=== PATIENT | female | born 1995 | race African-American/Black ===

== ENCOUNTER 2016-12-28 11:48 | Inpatient (IN) | payer OTHER ==
[~2016-12-28] VITALS: Ht 167.6 cm; Wt 110.7 kg
[~2016-12-28 11:48] MED LIST: HYDR-971 PO; IBUP200T43 PO
[2016-12-28] MEDS ORDERED: IV NORMAL SALINE 1000ML BAG 1,000 ML IV SCH (13:06)
[2016-12-28] MEDS ORDERED: FAMOTIDINE 20 MG/2 ML VIAL IVP ONE (13:15)
[2016-12-28] MEDS ORDERED: ONDANSETRON PF 4 MG/2 ML VIAL. IV ONE (13:15)
[2016-12-28] MEDS: FENTANYL PF 100 MCG/2 ML VIAL. IV PRN ×4 (13:25→20:17)
[2016-12-28 13:26] LABS: BASO % 0 % (0-3); EOS % 0 % (0-3); HEMATOCRIT 38.7 % (36.0-47.0); LYMPH # 1.1 x10^3/uL (1.0-4.8); LYMPH % 21 % (24-48); MEAN CORPUSCULAR HEMOGLOBIN 23 pg (25-35); MEAN CORPUSCULAR HGB CONC 31 g/dL (31-37); MEAN CORPUSCULAR VOLUME 75 fL (79-100); MONO % 7 % (0-9); NEUT % 71 % (31-73); PLATELET COUNT 331 x10^3/uL (140-400); RED BLOOD COUNT 5.17 x10^6/uL (3.50-5.40); RED CELL DISTRIBUTION WIDTH 17.1 % (11.5-14.5); WHITE BLOOD COUNT 4.9 x10^3/uL (4.0-11.0)
[2016-12-28 13:29] LABS: BILIRUBIN,URINE NEGATIVE (NEG); GLUCOSE,URINE NEGATIVE (NEG); NITRITE,URINE NEGATIVE (NEG); PROTEIN,URINE NEGATIVE (NEG-TRACE)
[2016-12-28 13:31] LABS: CALCIUM 9.5 mg/dL (8.5-10.1); CREATININE 0.8 mg/dL (0.6-1.0); GFR 110.7; POTASSIUM 3.8 mmol/L (3.5-5.1)
[2016-12-28 13:37] LABS: ALBUMIN 3.5 g/dL (3.4-5.0); ALBUMIN/GLOBULIN RATIO 0.8 (1.0-1.7); TOTAL BILIRUBIN 1.2 mg/dL (0.2-1.0)
[2016-12-28 13:45] LABS: BACTERIA,URINE FEW /HPF (0-FEW); SQUAMOUS EPITHELIAL CELL,UR FEW /LPF
--- NOTE | 2016-12-28 13:50 | PHYS DOC ---
Past Medical History Past Medical History: No Pertinent History Past Surgical History: No Surgical History Alcohol Use: None Drug Use: None Adult General Chief Complaint Chief Complaint: GI PROBLEM HPI HPI Patient is a 21 year old female who presents with complaint of epigastric and right upper quadrant abdominal pain. Patient states her symptoms started this morning at 0130. Patient states that she awoke from sleep with symptoms. Patient states that off and on for the past 6 months she has been having similar episodes which lasted briefly. Patient states however that her symptoms have been constant which is unusual for her previous episodes. Patient has had associated nausea and vomiting. Patient denies any diarrhea or fever associated with her symptoms. Patient rates her pain currently is 10 out of 10. Patient has not taken any medications to help with symptoms. Patient denies any known exacerbating factors for her symptoms. Review of Systems Review of Systems Constitutional: Denies fever or chills [] Eyes: Denies change in visual acuity, redness, or eye pain [] HENT: Denies nasal congestion or sore throat [] Respiratory: Denies cough or shortness of breath [] Cardiovascular: Denies chest pain or edema [] GI: Abdominal pain, nausea, vomiting, denies bloody stools or diarrhea [] : Denies dysuria or hematuria [] Musculoskeletal: Denies back pain or joint pain [] Integument: Denies rash or skin lesions [] Neurologic: Denies headache, focal weakness or sensory changes [] Current Medications Current Medications Current Medications Medications (Trade) Dose Ordered Sig/Shelly Start Time Stop Time Status Last Admin Dose Admin Famotidine (Pepcid) 20 mg 1X ONCE 12/28/16 13:15 12/28/16 13:16 DC 12/28/16 13:21 20 MG Fentanyl Citrate 50 mcg 50 mcg PRN Q15MIN PRN 12/28/16 13:15 12/29/16 13:14 12/28/16 15:21 50 MCG Ondansetron HCl (Zofran) 4 mg 1X ONCE 12/28/16 13:15 12/28/16 13:16 DC 12/28/16 13:22 4 MG Sodium Chloride (Iv Sodium Chloride 0.9% 1000ml Bag) 1,000 ml @ 1,000 mls/hr Q1H 12/28/16 13:06 12/28/16 14:05 DC 12/28/16 13:18 1,000 MLS/HR Allergies Allergies Allergies Coded Allergies Type Severity Reaction Last Updated Verified No Known Drug Allergies 08/24/15 No Physical Exam Physical Exam Constitutional: Alert, obese, afebrile, appears in moderate discomfort. [] HENT: Normocephalic, atraumatic, bilateral external ears normal, oropharynx moist, no oral exudates, nose normal. [] Eyes: PERRLA, EOMI, conjunctiva normal, no discharge. [] Neck: Normal range of motion, no tenderness, supple, no stridor. [] Cardiovascular:Heart rate regular rhythm, no murmur [] Lungs & Thorax: Bilateral breath sounds clear to auscultation [] Abdomen: Bowel sounds normal, soft, epigastric and right upper quadrant tenderness to palpation with guarding, no rebound tenderness, no masses, no pulsatile masses. [] Skin: Warm, dry, no erythema, no rash. [] Back: No tenderness, no CVA tenderness. [] Extremities: No tenderness, no cyanosis, no clubbing, ROM intact, no edema. [] Neurologic: Alert and oriented X 3, normal motor function, normal sensory function, no focal deficits noted. [] Current Patient Data Vital Signs Vital Signs Date Time Temp Pulse Resp B/P Pulse Ox O2 Delivery O2 Flow Rate FiO2 12/28/16 14:34 54 109/57 99 Room Air 12/28/16 13:25 16 12/28/16 11:55 98.5 98.5 Lab Values Laboratory Tests Test 12/28/16 11:57 12/28/16 12:01 12/28/16 12:05 Urine Collection Type Unknown Urine Color Yellow Urine Clarity Clear Urine pH 8.0 Urine Specific [place] 1.020 Urine Protein Negativemg/dL (NEG-TRACE) Urine Glucose (UA) Negativemg/dL (NEG) Urine Ketones (Stick) Negativemg/dL (NEG) Urine Blood Negative (NEG) Urine Nitrite Negative (NEG) Urine Bilirubin Negative (NEG) Urine Urobilinogen Dipstick 1.0mg/dL (0.2 mg/dL) Urine Leukocyte Esterase Trace (NEG) Urine RBC 1-2/HPF (0-2) Urine WBC 1-4/HPF (0-4) Urine Squamous Epithelial Cells Few/LPF Urine Bacteria Few/HPF (0-FEW) Urine Mucus Slight/LPF POC Urine HCG, Qualitative Hcg negative (Negative) White Blood Count 4.9x10^3/uL (4.0-11.0) Red Blood Count 5.17x10^6/uL (3.50-5.40) Hemoglobin 12.0g/dL (12.0-15.5) Hematocrit 38.7% (36.0-47.0) Mean Corpuscular Volume 75fL (79-100) L Mean Corpuscular Hemoglobin 23pg (25-35) L Mean Corpuscular Hemoglobin Concent 31g/dL (31-37) Red Cell Distribution Width 17.1% (11.5-14.5) H Platelet Count 331x10^3/uL (140-400) Neutrophils (%) (Auto) 71% (31-73) Lymphocytes (%) (Auto) 21% (24-48) L Monocytes (%) (Auto) 7% (0-9) Eosinophils (%) (Auto) 0% (0-3) Basophils (%) (Auto) 0% (0-3) Neutrophils # (Auto) 3.5x10^3uL (1.8-7.7) Lymphocytes # (Auto) 1.1x10^3/uL (1.0-4.8) Monocytes # (Auto) 0.4x10^3/uL (0.0-1.1) Eosinophils # (Auto) 0.0x10^3/uL (0.0-0.7) Basophils # (Auto) 0.0x10^3/uL (0.0-0.2) Sodium Level 141mmol/L (136-145) Potassium Level 3.8mmol/L (3.5-5.1) Chloride Level 104mmol/L (98-107) Carbon Dioxide Level 29mmol/L (21-32) Anion Gap 8 (6-14) Blood Urea Nitrogen 11mg/dL (7-20) Creatinine 0.8mg/dL (0.6-1.0) Estimated GFR (Cockcroft-Gault) 110.7 BUN/Creatinine Ratio 14 (6-20) Glucose Level 102mg/dL (70-99) H Calcium Level 9.5mg/dL (8.5-10.1) Total Bilirubin 1.2mg/dL (0.2-1.0) H Aspartate Amino Transferase (AST) 312U/L (15-37) H Alanine Aminotransferase (ALT) 199U/L (14-59) H Alkaline Phosphatase 145U/L (46-116) H Total Protein 8.0g/dL (6.4-8.2) Albumin 3.5g/dL (3.4-5.0) Albumin/Globulin Ratio 0.8 (1.0-1.7) L Lipase 124U/L (73-393) Laboratory Tests 12/28/16 12:05 Laboratory Tests 12/28/16 12:05 EKG EKG Not performed [] Radiology/Procedures Radiology/Procedures [facility] [address] [place], [place] [id number] IMAGING REPORT Signed PATIENT: HALIE KAUR ACCOUNT: [id number] : 1995 LOCATION: ER AGE: 21 SEX: F EXAM STATUS: REG ER ORD. PHYSICIAN: MESHA MONTANEZ MD REASON: right upper quadrant pain PROCEDURE: ABDOMEN LTD EXAM: Right upper quadrant ultrasound. HISTORY: Right upper quadrant pain. COMPARISON: None. FINDINGS: Sonographic evaluation of the right upper quadrant was performed. The liver appears normal in parenchymal echotexture. There are no focal lesions. There are a few small stones within the gallbladder. There is no pericholecystic fluid or wall thickening. The blood bank specialist notes tenderness over the gallbladder. The common duct measures 10 mm. No choledocholithiasis or distal obstructing lesion is seen. The visualized portions of the head and body of the pancreas reveal no abnormality. The right kidney measures 10.8 cm. Cortical thickness and echogenicity are preserved. There is no hydronephrosis. The visualized portions of the abdominal aorta and inferior vena cava are grossly patent and normal in caliber. IMPRESSION: 1. Cholelithiasis. The blood bank specialist notes tenderness over the gallbladder, but no grayscale evidence of cholecystitis is seen. Correlate with other data. 2. The common duct is mildly dilated at 10 mm. No choledocholithiasis or distal obstructing lesion is seen. Correlate for cholestasis to assess significance. MRCP could further evaluate if there is persistent concern. DICTATED and SIGNED BY: AGUSTÍN PUCKETT MD DATE: 12/28/16 1408 CC: MESHA MONTANEZ MD; AGUSTÍN NICKERSON MD ~ [] Course & Med Decision Making Course & Med Decision Making Pertinent Labs and Imaging studies reviewed. (See chart for details) Patient started on IV fluids, fentanyl, and Zofran. The patient was found to have a dilated common bile duct and the presence of stones in her gallbladder. I have high suspicion that the patient has obstruction of the common bile duct secondary to choledocholithiasis. Patient has elevated LFTs. The patient will need to be admitted to the hospital for continued workup including MRCP and gastroenterology consult. I spoke with Dr. Chua who accepted care patient in hospital. Dragon Disclaimer Dragon Disclaimer This electronic medical record was generated, in whole or in part, using a voice recognition dictation system. Departure Departure Impression: Primary Impression: Choledocholithiasis Additional Impressions: Elevated transaminase level Hyperbilirubinemia Disposition: ADMITTED INPATIENT Admitting Physician: Nenita Chua Condition: STABLE Referrals: AGUSTÍN NICKERSON MD (PCP) Problem Qualifiers MESHA MONTANEZ MD Dec 28, 2016 13:50
--- NOTE | 2016-12-28 14:13 | RAD ---
EXAM: Right upper quadrant ultrasound. HISTORY: Right upper quadrant pain. COMPARISON: None. FINDINGS: Sonographic evaluation of the right upper quadrant was performed. The liver appears normal in parenchymal echotexture. There are no focal lesions. There are a few small stones within the gallbladder. There is no pericholecystic fluid or wall thickening. The agricultural labor camp manager notes tenderness over the gallbladder. The common duct measures 10 mm. No choledocholithiasis or distal obstructing lesion is seen. The visualized portions of the head and body of the pancreas reveal no abnormality. The right kidney measures 10.8 cm. Cortical thickness and echogenicity are preserved. There is no hydronephrosis. The visualized portions of the abdominal aorta and inferior vena cava are grossly patent and normal in caliber. IMPRESSION: 1. Cholelithiasis. The agricultural labor camp manager notes tenderness over the gallbladder, but no grayscale evidence of cholecystitis is seen. Correlate with other data. 2. The common duct is mildly dilated at 10 mm. No choledocholithiasis or distal obstructing lesion is seen. Correlate for cholestasis to assess significance. MRCP could further evaluate if there is persistent concern.
[2016-12-28] MEDS ORDERED: ONDANSETRON PF 4 MG/2 ML VIAL. IV PRN (15:00)
[2016-12-28] MEDS: IV NORMAL SALINE 1000ML BAG 1,000 ML IV SCH (15:24)
--- NOTE | 2016-12-28 15:37 | PDOC2 ---
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 Reports episodes of upper abdominal pain for a few months that awakens her from sleep, occurs at work, or occurs after eating; pain has previously resolved spontaneously. This morning, pain recurred around 1:30 (again while sleeping) and has been persistent and more severe, hence ER eval. Feels better when hunched over. No radiation. Associated w/ nausea and "a lot" (cannot specify) of watery stools. Denies vomiting, hematochezia/melena. No h/o GERD or significant PMH other than vaginal delivery 06/2016. Believes has gained a little weight recently. Significant labs: elevated bili 1.2, AST 312, ALT 199, Alk Phos 145, normal lipase 124. RUQ US w/ cholelithiasis and mildly dilated CBD 10mm; normal liver , no choledocholithiasis seen. Surgery consulted, to be admitted to regular floor. PMH: PMH: denies other than HPI FH: Family History: Other ("a few people" had gallbladder disease, denies GI cancers) Social History: Smoke: No ALCOHOL: none Drugs: None (+marijuana 07/2016) ROS: GEN: Denies fevers, chills, sweats HEENT: Denies blurred vision, sore throat CV: Denies chest pain RESP: Denies shortness of air, cough GI: Per HPI : Denies hematuria, dysuria ENDO: +possible weight gain NEURO: Denies confusion, dizziness MSK: Denies weakness, joint pain/swelling SKIN: Denies jaundice, pruritus VItals: Vitals: Vital Signs Date Time Temp Pulse Resp B/P Pulse Ox O2 Delivery O2 Flow Rate FiO2 12/28/16 13:25 16 98 Room Air 12/28/16 11:55 98.5 81 139/69 98.5 Labs: Labs: Laboratory Tests Test 12/28/16 11:57 12/28/16 12:01 12/28/16 12:05 Urine Collection Type Unknown Urine Color Yellow Urine Clarity Clear Urine pH 8.0 Urine Specific [place] 1.020 Urine Protein Negativemg/dL (NEG-TRACE) Urine Glucose (UA) Negativemg/dL (NEG) Urine Ketones (Stick) Negativemg/dL (NEG) Urine Blood Negative (NEG) Urine Nitrite Negative (NEG) Urine Bilirubin Negative (NEG) Urine Urobilinogen Dipstick 1.0mg/dL (0.2 mg/dL) Urine Leukocyte Esterase Trace (NEG) Urine RBC 1-2/HPF (0-2) Urine WBC 1-4/HPF (0-4) Urine Squamous Epithelial Cells Few/LPF Urine Bacteria Few/HPF (0-FEW) Urine Mucus Slight/LPF Bedside Urine HCG, Qualitative Hcg negative (Negative) White Blood Count 4.9x10^3/uL (4.0-11.0) Red Blood Count 5.17x10^6/uL (3.50-5.40) Hemoglobin 12.0g/dL (12.0-15.5) Hematocrit 38.7% (36.0-47.0) Mean Corpuscular Volume 75fL (79-100) Mean Corpuscular Hemoglobin 23pg (25-35) Mean Corpuscular Hemoglobin Concent 31g/dL (31-37) Red Cell Distribution Width 17.1% (11.5-14.5) Platelet Count 331x10^3/uL (140-400) Neutrophils (%) (Auto) 71% (31-73) Lymphocytes (%) (Auto) 21% (24-48) Monocytes (%) (Auto) 7% (0-9) Eosinophils (%) (Auto) 0% (0-3) Basophils (%) (Auto) 0% (0-3) Neutrophils # (Auto) 3.5x10^3uL (1.8-7.7) Lymphocytes # (Auto) 1.1x10^3/uL (1.0-4.8) Monocytes # (Auto) 0.4x10^3/uL (0.0-1.1) Eosinophils # (Auto) 0.0x10^3/uL (0.0-0.7) Basophils # (Auto) 0.0x10^3/uL (0.0-0.2) Sodium Level 141mmol/L (136-145) Potassium Level 3.8mmol/L (3.5-5.1) Chloride Level 104mmol/L (98-107) Carbon Dioxide Level 29mmol/L (21-32) Anion Gap 8 (6-14) Blood Urea Nitrogen 11mg/dL (7-20) Creatinine 0.8mg/dL (0.6-1.0) Estimated GFR (Cockcroft-Gault) 110.7 BUN/Creatinine Ratio 14 (6-20) Glucose Level 102mg/dL (70-99) Calcium Level 9.5mg/dL (8.5-10.1) Total Bilirubin 1.2mg/dL (0.2-1.0) Aspartate Amino Transf (AST/SGOT) 312U/L (15-37) Alanine Aminotransferase (ALT/SGPT) 199U/L (14-59) Alkaline Phosphatase 145U/L (46-116) Total Protein 8.0g/dL (6.4-8.2) Albumin 3.5g/dL (3.4-5.0) Albumin/Globulin Ratio 0.8 (1.0-1.7) Lipase 124U/L (73-393) Allergies: Coded Allergies: No Known Drug Allergies (Unverified , 08/24/15) Medications: Current Medications Medications (Trade) Dose Ordered Sig/Shelly Route PRN Reason Start Time Stop Time Status Last Admin Dose Admin Fentanyl Citrate 50 mcg 50 mcg PRN Q15MIN PRN IV PAIN GREATER THAN 12/3012/28/16 13:15 12/29/16 13:14 12/28/16 13:25 Sodium Chloride (Iv Sodium Chloride 0.9% 1000ml Bag) 1,000 ml @ 1,000 mls/hr Q1H IV 12/28/16 13:06 12/28/16 14:05 DC 12/28/16 13:18 Ondansetron HCl (Zofran) 4 mg 1X ONCE IV 12/28/16 13:15 12/28/16 13:16 DC 12/28/16 13:22 Famotidine (Pepcid) 20 mg 1X ONCE IVP 12/28/16 13:15 12/28/16 13:16 DC 12/28/16 13:21 Imaging: Imaging: [facility] US 12/28/16 FINDINGS: The liver appears normal in parenchymal echotexture. There are no focal lesions. There are a few small stones within the gallbladder. There is no pericholecystic fluid or wall thickening. The scenic designer notes tenderness over the gallbladder. The common duct measures 10 mm. No choledocholithiasis or distal obstructing lesion is seen. The visualized portions of the head and body of the pancreas reveal no abnormality. The right kidney measures 10.8 cm. Cortical thickness and echogenicity are preserved. There is no hydronephrosis. The visualized portions of the abdominal aorta and inferior vena cava are grossly patent and normal in caliber. IMPRESSION: 1. Cholelithiasis. The scenic designer notes tenderness over the gallbladder, but no grayscale evidence of cholecystitis is seen. Correlate with other data. 2. The common duct is mildly dilated at 10 mm. No choledocholithiasis or distal obstructing lesion is seen. Correlate for cholestasis to assess significance. MRCP could further evaluate if there is persistent concern. PE: GEN: NAD, sitting up in bed in ER, on phone HEENT: atraumatic, PERRL LUNGS: CTAB HEART: RRR ABD: obese, NABS, soft, non-distended, epigastric < RUQ tenderness EXTREMITY: no edema SKIN: no rashes, no jaundice NEURO/PSYCH: A & O 3 A/P: A/P: RUQ/epigastric pain, nausea, diarrhea -pain on and off for a few months, this morning worse/persistent -nausea w/o vomiting, new onset watery stools Elevated LFTs -bili 1.2 Cholelithiasis, mildly dilated CBD Microcytosis Elevated BMI 37.9 -- D/w Dr. Soto - surg to see re: cathi w/ IOC. ERCP to follow if abnormal. Okay to wait on MRCP for now. DOUG EAGLE Dec 28, 2016 15:37
--- NOTE | 2016-12-28 15:39 | PDOC1 ---
History and Physical Date of Admission Date of Admission DATE: 12/28/16 TIME: 15:34 Identification/Chief Complaint Chief Complaint abd pain Source Source: Chart review, Patient History of Present Illness History of Present Illness Ms. Best, is a 21 year old female admit from ER with acute epigastric and RUQ abdominal pain. 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 10/10 pain today no nausea or vomiting or diarrhea Past Medical History Cardiovascular: No pertinent hx Pulmonary: No pertinent hx Heme/Onc: No pertinent hx Hepatobiliary: No pertinent hx Psych: No pertinent hx Musculoskeletal: low back pain, Other (feet pain) Rheumatologic: No pertinent hx Endocrine: No pertinent hx Family History Family History: No Significant Social History Smoke: No ALCOHOL: none Drugs: None Current Medications Current Medications Current Medications Fentanyl Citrate 50 mcg 50 mcg PRN Q15MIN PRN IV PAIN GREATER THAN 3/10 Last administered on 12/28/16 15:21; Start 12/28/16 at 13:15; Stop 12/29/16 at 13:14 Sodium Chloride (Iv Sodium Chloride 0.9% 1000ml Bag) 1,000 ml @ 1,000 mls/hr Q1H IV Last administered on 12/28/16 13:18; Start 12/28/16 at 13:06; Stop at 14:05; Status DC Ondansetron HCl (Zofran) 4 mg 1X ONCE IV Last administered on 12/28/16 13:22; Start 12/28/16 at 13:15; Stop 12/28/16 at 13:16; Status DC Famotidine (Pepcid) 20 mg 1X ONCE IVP Last administered on 12/28/16 13:21; Start 12/28/16 at 13:15; Stop 12/28/16 at 13:16; Status DC Ondansetron HCl (Zofran) 4 mg PRN Q8HRS PRN IV NAUSEA/VOMITING; Start 12/28/16 at 15:00; Stop 12/29/16 at 14:59 Fentanyl Citrate 50 mcg 50 mcg PRN Q2HR PRN IV PAIN; Start 12/28/16 at 15:00; Stop 12/29/16 at 14:59 Sodium Chloride (Iv Sodium Chloride 0.9% 1000ml Bag) 1,000 ml @ 125 mls/hr Q8H IV Last administered on 12/28/16t 15:24; Start 12/28/16 at 15:00; Stop 12/29/16 at 14:59 Active Scripts Active Motrin Ib (Ibuprofen) 200 Mg Tablet 800 Mg PO TID PRN [place] 5-325 Tablet (Acetaminophen/Hydrocodone Bitart) 1 Each Tablet 1 Tab PO PRN Q6HRS PRN Allergies Allergies: Coded Allergies: No Known Drug Allergies (Unverified , 08/24/15) ROS General: No: Appetite, Chills, Fatigue, Malaise, Night Sweats, Other PSYCHOLOGICAL ROS: No: Anxiety, Behavioral Disorder, Concentration difficultie , Decreased libido, Depression, Disorientation, Hallucinations, Hostility, Irritablity, Memory difficulties, Mood Swings, Obsessive thoughts, Other, Physical abuse, Sexual abuse, Sleep disturbances, Suicidal ideation Eyes: No Blurry vision, No Decreased vision, No Double vision, No Dry eyes, No Excessive tearing, No Eye Pain, No Itchy Eyes, No Loss of vision, No Other, No Photophobia, No Scotomata, No Uses contacts, No Uses glasses HEENT: YES: Heacaches, No: Epistaxis, Hearing change, Nasal congestion, Nasal discharge, Oral lesions, Other, Sinus pain, Sneezing, Snoring, Sore Throat, Tinnitus, Vertigo, Visual Changes, Vocal changes ENDOCRINE: No: Breast Changes, Galactorrhea, Hair Pattern Changes, Hot Flashes , Malaise/lethargy, Mood Swings, Other, Palpitations, Polydipsia/polyuria, Skin Changes, Temperature Intolerance, Unexpected Weight Changes Breast: No New/Changing Breast Lumps, No Nipple changes, No Nipple discharge, No Other Respiratory: No: Cough, Hemoptysis, Orthopnea, Other, Pleuritic Pain, SOB with excertion, Shortness of breath, Sputum Changes, Stridor, Tachypnea, Wheezing Cardiovascular: No Chest Pain, No Edema, No Lt Headedness, No Orthopnea, No Other, No Palpitations, No Paroxysmal Noc. Dyspnea Gastrointestinal: Yes Abdominal Pain, Yes Nausea, No Constipation, No Diarrhea, No Hematochezia, No Melena, No Other, No Vomiting Musculoskeletal: Yes Joint Pain, Yes Joint Stiffness, No Gait Disturbance, No Joint Swelling, No Muscle Pain, No Muscular Weakness , No Other, No Pain In:, No Swelling In: Neurological: No Behavorial Changes, No Bowel/Bladder ControlChng, No Confusion , No Dizziness, No Gait Disturbance, No Headaches, No Impaired Coord/balance, No Memory Loss, No Numbness/Tingling, No Other, No Seizures, No Speech Problems , No Tremors, No Visual Changes, No Weakness Skin: No Acne, No Dry Skin, No Eczema, No Hair Changes, No Lumps, No Mole Changes, No Mottling, No Nail Changes, No Other, No Pruritus, No Rash, No Skin Lesion Changes Physical Exam General: Alert, Oriented X3, Cooperative, mild distress HEENT: EOMI, Mucous membr. moist/pink Lungs: Normal air movement Heart: no murmurs Abdomen: Normal bowel sounds, Other (tender ROQ, no peritoneal sign) Rectal Exam: not examined PELVIC: Nml ext uterus Extremities: No cyanosis, No edema Neuro: Normal speech, Sensation intact Psych/Mental Status: Mental status NL, Mood NL Vitals Vitals Vital Signs Date Time Temp Pulse Resp B/P Pulse Ox O2 Delivery O2 Flow Rate FiO2 12/28/16 15:21 16 100 Room Air 12/28/16 11:55 98.5 81 139/69 98.5 Labs Labs Laboratory Tests Test 12/28/16 11:57 12/28/16 12:01 12/28/16 12:05 Urine Collection Type Unknown Urine Color Yellow Urine Clarity Clear Urine pH 8.0 Urine Specific [place] 1.020 Urine Protein Negativemg/dL (NEG-TRACE) Urine Glucose (UA) Negativemg/dL (NEG) Urine Ketones (Stick) Negativemg/dL (NEG) Urine Blood Negative (NEG) Urine Nitrite Negative (NEG) Urine Bilirubin Negative (NEG) Urine Urobilinogen Dipstick 1.0mg/dL (0.2 mg/dL) Urine Leukocyte Esterase Trace (NEG) Urine RBC 1-2/HPF (0-2) Urine WBC 1-4/HPF (0-4) Urine Squamous Epithelial Cells Few/LPF Urine Bacteria Few/HPF (0-FEW) Urine Mucus Slight/LPF Bedside Urine HCG, Qualitative Hcg negative (Negative) White Blood Count 4.9x10^3/uL (4.0-11.0) Red Blood Count 5.17x10^6/uL (3.50-5.40) Hemoglobin 12.0g/dL (12.0-15.5) Hematocrit 38.7% (36.0-47.0) Mean Corpuscular Volume 75fL (79-100) Mean Corpuscular Hemoglobin 23pg (25-35) Mean Corpuscular Hemoglobin Concent 31g/dL (31-37) Red Cell Distribution Width 17.1% (11.5-14.5) Platelet Count 331x10^3/uL (140-400) Neutrophils (%) (Auto) 71% (31-73) Lymphocytes (%) (Auto) 21% (24-48) Monocytes (%) (Auto) 7% (0-9) Eosinophils (%) (Auto) 0% (0-3) Basophils (%) (Auto) 0% (0-3) Neutrophils # (Auto) 3.5x10^3uL (1.8-7.7) Lymphocytes # (Auto) 1.1x10^3/uL (1.0-4.8) Monocytes # (Auto) 0.4x10^3/uL (0.0-1.1) Eosinophils # (Auto) 0.0x10^3/uL (0.0-0.7) Basophils # (Auto) 0.0x10^3/uL (0.0-0.2) Sodium Level 141mmol/L (136-145) Potassium Level 3.8mmol/L (3.5-5.1) Chloride Level 104mmol/L (98-107) Carbon Dioxide Level 29mmol/L (21-32) Anion Gap 8 (6-14) Blood Urea Nitrogen 11mg/dL (7-20) Creatinine 0.8mg/dL (0.6-1.0) Estimated GFR (Cockcroft-Gault) 110.7 BUN/Creatinine Ratio 14 (6-20) Glucose Level 102mg/dL (70-99) Calcium Level 9.5mg/dL (8.5-10.1) Total Bilirubin 1.2mg/dL (0.2-1.0) Aspartate Amino Transf (AST/SGOT) 312U/L (15-37) Alanine Aminotransferase (ALT/SGPT) 199U/L (14-59) Alkaline Phosphatase 145U/L (46-116) Total Protein 8.0g/dL (6.4-8.2) Albumin 3.5g/dL (3.4-5.0) Albumin/Globulin Ratio 0.8 (1.0-1.7) Lipase 124U/L (73-393) Laboratory Tests Test 12/28/16 11:57 12/28/16 12:01 12/28/16 12:05 Urine Collection Type Unknown Urine Color Yellow Urine Clarity Clear Urine pH 8.0 Urine Specific [place] 1.020 Urine Protein Negativemg/dL (NEG-TRACE) Urine Glucose (UA) Negativemg/dL (NEG) Urine Ketones (Stick) Negativemg/dL (NEG) Urine Blood Negative (NEG) Urine Nitrite Negative (NEG) Urine Bilirubin Negative (NEG) Urine Urobilinogen Dipstick 1.0mg/dL (0.2 mg/dL) Urine Leukocyte Esterase Trace (NEG) Urine RBC 1-2/HPF (0-2) Urine WBC 1-4/HPF (0-4) Urine Squamous Epithelial Cells Few/LPF Urine Bacteria Few/HPF (0-FEW) Urine Mucus Slight/LPF Bedside Urine HCG, Qualitative Hcg negative (Negative) White Blood Count 4.9x10^3/uL (4.0-11.0) Red Blood Count 5.17x10^6/uL (3.50-5.40) Hemoglobin 12.0g/dL (12.0-15.5) Hematocrit 38.7% (36.0-47.0) Mean Corpuscular Volume 75fL (79-100) Mean Corpuscular Hemoglobin 23pg (25-35) Mean Corpuscular Hemoglobin Concent 31g/dL (31-37) Red Cell Distribution Width 17.1% (11.5-14.5) Platelet Count 331x10^3/uL (140-400) Neutrophils (%) (Auto) 71% (31-73) Lymphocytes (%) (Auto) 21% (24-48) Monocytes (%) (Auto) 7% (0-9) Eosinophils (%) (Auto) 0% (0-3) Basophils (%) (Auto) 0% (0-3) Neutrophils # (Auto) 3.5x10^3uL (1.8-7.7) Lymphocytes # (Auto) 1.1x10^3/uL (1.0-4.8) Monocytes # (Auto) 0.4x10^3/uL (0.0-1.1) Eosinophils # (Auto) 0.0x10^3/uL (0.0-0.7) Basophils # (Auto) 0.0x10^3/uL (0.0-0.2) Sodium Level 141mmol/L (136-145) Potassium Level 3.8mmol/L (3.5-5.1) Chloride Level 104mmol/L (98-107) Carbon Dioxide Level 29mmol/L (21-32) Anion Gap 8 (6-14) Blood Urea Nitrogen 11mg/dL (7-20) Creatinine 0.8mg/dL (0.6-1.0) Estimated GFR (Cockcroft-Gault) 110.7 BUN/Creatinine Ratio 14 (6-20) Glucose Level 102mg/dL (70-99) Calcium Level 9.5mg/dL (8.5-10.1) Total Bilirubin 1.2mg/dL (0.2-1.0) Aspartate Amino Transf (AST/SGOT) 312U/L (15-37) Alanine Aminotransferase (ALT/SGPT) 199U/L (14-59) Alkaline Phosphatase 145U/L (46-116) Total Protein 8.0g/dL (6.4-8.2) Albumin 3.5g/dL (3.4-5.0) Albumin/Globulin Ratio 0.8 (1.0-1.7) Lipase 124U/L (73-393) VTE Prophylaxis Ordered VTE Prophylaxis Devices: Yes VTE Pharmacological Prophylaxi: Contraindicated Assessment/Plan Assessment/Plan Acute RUQ pain choledocholithiasis consult GI and Gen surg transaminitis, hyperbili microcytosis without anemia, poss thalassemia check iron level admit DIONICIO VELÁSQUEZ MD Dec 28, 2016 15:39
[2016-12-28 15:55] VITALS: BP 115/70
--- NOTE | 2016-12-28 16:22 | ACF ---
Admission Forms Criteria ABDOMINAL PAIN Clinical Indications for Admission to Inpatient Care (Place 'X' for any and all applicable criteria): Admission is indicated for ANY ONE of the following(1)(2)(3)(4)(5): [X]I. Inpatient admission required rather than observation care (Also use Abdominal Pain: Observation Care, as appropriate) because of ANY ONE of the following: [X]a) Severe pain requiring acute inpatient management [X]b) Identification of etiology/finding that requires inpatient care (eg, aortic dissection, free air) [ ]c) Absent bowel sounds with complete ileus(6) [ ]d) Suspected toxic megacolon [ ]e) Severe electrolyte abnormalities requiring inpatient care [ ]f) High fever or infection requiring inpatient admission as indicated by ANY ONE of following(7)(8): [ ] i) Appropriate outpatient or observational care antimicrobial treatment unavailable, not effective, or not feasible [ ] ii) Documented bacteremia [ ] iii) Temperature > 104.9 degrees F (oral) [ ] iv) T >103.1 F (oral) or < 96.8 F(rectal) that does not respond to all emergency treatment measures [ ]g) Signs of intestinal obstruction [B] [ ]h) Hemodynamic instability [ ]i) IV fluid to replace significant ongoing losses (greater than 3 L/m2 per day) (12)(13) [ ]j) Percutaneous or open drainage (eg, abscess, biliary tract ) procedures [ ]k) Parenteral nutrition regimen that must be implemented on inpatient basis [ ]l) Other condition,treatment or monitoring requiring inpatient admission. [ ]II. Peritoneal signs present [ ]III. Surgery needed that cannot be performed on an ambulatory basis. [ ]IV. Evaluation requires patient to not eat or drink for extended period ( eg, more than 24 hours). [ ]V. Contraindications and/or Inappropriate clinical situations for Observational Care in patients with abdominal pain, when ANY ONE of the following is required: [ ]a) Thorough evaluation is required to prevent catastrophic events due to delays in diagnosing (e.g.Mesenteric ischemia) 1,3 [ ]b) Patient with severe pathology or with chronic symptoms unlikely to improve in the ED stay (3) [ ]. General contraindications and/or Inappropriate clinical situations for Observational Care in patients with abdominal pain, when ANY ONE of the following is required: [ ]a) Prediction of prolongation of LOS based on ANY ONE of the following may be considered as a contraindication for observational care 2, 3, 4, 5, 6, 7, 8, 9, 10, 11 [ ]i) Age > 65 yrs. [ ]ii) Patient arriving by ambulance [ ]iii) Patient with high acuity [ ]iv) Patient requiring vital sign monitoring [ ]v) Patient on IV medication [ ]b) Systolic blood pressures 180mmHg 3,12 [ ]c) Patient with altered mental status including delirium and other alteration of consciousness, (3) [ ]d) Patient whose discharge disposition will be to a fdc home or rehabilitation home should not be managed in Emergency Department Observation Unit. CMS rule requires 3 days hospital stay before such placement.3,13 [ ]e) Patient with failure to thrive due to broad array of etiologies 3,16,17 [ ]f) Inability to ambulate 3,14 Extended stay beyond goal length of stay may be needed for(2)(3): [ ]a) Persistent abdominal pain with suspected intra-abdominal process [ ]b) Diagnosed condition requiring continued stay (e.g., pancreatitis, complicated diverticulitis) [ ]c) Surgery (e.g., colectomy) The original [email or web address] content created by [employer] has been revised. The portions of the content which have been revised are identified through the use of italic text or in bold, and [facility] [employer] has neither reviewed nor approved the modified material.All other unmodified content is copyright [employer]. Please see references footnoted in the original [email or web address] edition 2016 Admission Criteria Met?: Yes CARRIE العلي Dec 28, 2016 16:22
[2016-12-28 19:15] VITALS: BP 115/67
[2016-12-28 22:59] VITALS: BP 117/54
[2016-12-29] VITALS (10 sets, daily range): BP systolic 98–149; BP diastolic 63–95
[2016-12-29] MEDS: IV NORMAL SALINE 1000ML BAG 1,000 ML IV SCH ×3 (01:06→09:19)
[2016-12-29 04:29] LABS: BASO % 0 % (0-3); EOS % 2 % (0-3); HEMATOCRIT 34.3 % (36.0-47.0); HEMOGLOBIN 10.8 g/dL (12.0-15.5); LYMPH % 36 % (24-48); MEAN CORPUSCULAR HEMOGLOBIN 24 pg (25-35); MEAN CORPUSCULAR HGB CONC 32 g/dL (31-37); MEAN CORPUSCULAR VOLUME 74 fL (79-100); MONO % 7 % (0-9); NEUT % 56 % (31-73); PLATELET COUNT 285 x10^3/uL (140-400); RED BLOOD COUNT 4.61 x10^6/uL (3.50-5.40); WHITE BLOOD COUNT 5.7 x10^3/uL (4.0-11.0)
[2016-12-29 04:40] LABS: CALCIUM 8.5 mg/dL (8.5-10.1); CREATININE 0.7 mg/dL (0.6-1.0); GFR 129.1; POTASSIUM 3.7 mmol/L (3.5-5.1)
[2016-12-29 05:51] LABS: % SAT IRON 17 % (15-34); IRON,SERUM 49 ug/dL (50-170)
[2016-12-29] MEDS: FENTANYL PF 100 MCG/2 ML VIAL. IV PRN ×7 (09:15→23:07)
[2016-12-29] MEDS ORDERED: CEFAZOLIN 2GM PREMIX 50 ML IV SCH (10:45)
[2016-12-29] MEDS ORDERED: HEPARIN 1,000 UNIT in IV NORMAL SALINE 1,000 ML for SURG PERIOP IRR ONE (11:00)
[2016-12-29] MEDS ORDERED: IOHEXOL 300 MG/ML 50 ML VIAL. ONE (11:14)
[2016-12-29] MEDS ORDERED: BUPIVAC MPF-EPI 0.5%-1:200000 30 ML VIAL. ONE (11:14)
[2016-12-29] MEDS ORDERED: BISACODYL 10 MG SUPP.RECT ONE (11:15)
[2016-12-29] MEDS ORDERED: SURGICEL HEMOSTAT 2X3 EACH. ONE (11:15)
[2016-12-29] MEDS ORDERED: IV RINGERS,LACTATED 1000ML 1,000 ML IV SCH (11:18)
[2016-12-29] MEDS ORDERED: ROCURONIUM 50 MG/5 ML VIAL. ONE ×2 (11:23)
--- NOTE | 2016-12-29 11:23 | PDOC ---
SURGICAL PROGRESS NOTE Subjective 21 yo F with calculous cholecystitis TO OR for lap cathi with grams R/B/A d/w pt and pt's aunt on phone Thanks for consult! [id number] Vital Signs Vital Signs Date Time Temp Pulse Resp B/P Pulse Ox O2 Delivery O2 Flow Rate FiO2 12/29/16 09:45 16 Room Air 12/29/16 07:00 98.3 67 98/63 96 98.3 I&O Intake and Output 12/29/16 07:00 Intake Total 1000 ml Output Total 0 ml Balance 1000 ml Intake IV Total 1000 ml Output Urine Total 0 ml # Voids 3 Labs Laboratory Tests Test 12/28/16 11:57 12/28/16 12:01 12/28/16 12:05 12/29/16 04:15 Urine Collection Type Unknown Urine Color Yellow Urine Clarity Clear Urine pH 8.0 Urine Specific [place] 1.020 Urine Protein Negativemg/dL (NEG-TRACE) Urine Glucose (UA) Negativemg/dL (NEG) Urine Ketones (Stick) Negativemg/dL (NEG) Urine Blood Negative (NEG) Urine Nitrite Negative (NEG) Urine Bilirubin Negative (NEG) Urine Urobilinogen Dipstick 1.0mg/dL (0.2 mg/dL) Urine Leukocyte Esterase Trace (NEG) Urine RBC 1-2/HPF (0-2) Urine WBC 1-4/HPF (0-4) Urine Squamous Epithelial Cells Few/LPF Urine Bacteria Few/HPF (0-FEW) Urine Mucus Slight/LPF Bedside Urine HCG, Qualitative Hcg negative (Negative) White Blood Count 4.9x10^3/uL (4.0-11.0) 5.7x10^3/uL (4.0-11.0) Red Blood Count 5.17x10^6/uL (3.50-5.40) 4.61x10^6/uL (3.50-5.40) Hemoglobin 12.0g/dL (12.0-15.5) 10.8g/dL (12.0-15.5) Hematocrit 38.7% (36.0-47.0) 34.3% (36.0-47.0) Mean Corpuscular Volume 75fL (79-100) 74fL (79-100) Mean Corpuscular Hemoglobin 23pg (25-35) 24pg (25-35) Mean Corpuscular Hemoglobin Concent 31g/dL (31-37) 32g/dL (31-37) Red Cell Distribution Width 17.1% (11.5-14.5) 17.0% (11.5-14.5) Platelet Count 331x10^3/uL (140-400) 285x10^3/uL (140-400) Neutrophils (%) (Auto) 71% (31-73) 56% (31-73) Lymphocytes (%) (Auto) 21% (24-48) 36% (24-48) Monocytes (%) (Auto) 7% (0-9) 7% (0-9) Eosinophils (%) (Auto) 0% (0-3) 2% (0-3) Basophils (%) (Auto) 0% (0-3) 0% (0-3) Neutrophils # (Auto) 3.5x10^3uL (1.8-7.7) 3.2x10^3uL (1.8-7.7) Lymphocytes # (Auto) 1.1x10^3/uL (1.0-4.8) 2.0x10^3/uL (1.0-4.8) Monocytes # (Auto) 0.4x10^3/uL (0.0-1.1) 0.4x10^3/uL (0.0-1.1) Eosinophils # (Auto) 0.0x10^3/uL (0.0-0.7) 0.1x10^3/uL (0.0-0.7) Basophils # (Auto) 0.0x10^3/uL (0.0-0.2) 0.0x10^3/uL (0.0-0.2) Sodium Level 141mmol/L (136-145) 142mmol/L (136-145) Potassium Level 3.8mmol/L (3.5-5.1) 3.7mmol/L (3.5-5.1) Chloride Level 104mmol/L (98-107) 108mmol/L (98-107) Carbon Dioxide Level 29mmol/L (21-32) 24mmol/L (21-32) Anion Gap 8 (6-14) 10 (6-14) Blood Urea Nitrogen 11mg/dL (7-20) 10mg/dL (7-20) Creatinine 0.8mg/dL (0.6-1.0) 0.7mg/dL (0.6-1.0) Estimated GFR (Cockcroft-Gault) 110.7 129.1 BUN/Creatinine Ratio 14 (6-20) Glucose Level 102mg/dL (70-99) 103mg/dL (70-99) Calcium Level 9.5mg/dL (8.5-10.1) 8.5mg/dL (8.5-10.1) Total Bilirubin 1.2mg/dL (0.2-1.0) Aspartate Amino Transf (AST/SGOT) 312U/L (15-37) Alanine Aminotransferase (ALT/SGPT) 199U/L (14-59) Alkaline Phosphatase 145U/L (46-116) Total Protein 8.0g/dL (6.4-8.2) Albumin 3.5g/dL (3.4-5.0) Albumin/Globulin Ratio 0.8 (1.0-1.7) Lipase 124U/L (73-393) Iron Level 49ug/dL (50-170) Total Iron Binding Capacity 285ug/dL (250-450) Iron Saturation 17% (15-34) Laboratory Tests Test 12/28/16 11:57 12/28/16 12:01 12/28/16 12:05 12/29/16 04:15 Urine Collection Type Unknown Urine Color Yellow Urine Clarity Clear Urine pH 8.0 Urine Specific [place] 1.020 Urine Protein Negativemg/dL (NEG-TRACE) Urine Glucose (UA) Negativemg/dL (NEG) Urine Ketones (Stick) Negativemg/dL (NEG) Urine Blood Negative (NEG) Urine Nitrite Negative (NEG) Urine Bilirubin Negative (NEG) Urine Urobilinogen Dipstick 1.0mg/dL (0.2 mg/dL) Urine Leukocyte Esterase Trace (NEG) Urine RBC 1-2/HPF (0-2) Urine WBC 1-4/HPF (0-4) Urine Squamous Epithelial Cells Few/LPF Urine Bacteria Few/HPF (0-FEW) Urine Mucus Slight/LPF Bedside Urine HCG, Qualitative Hcg negative (Negative) White Blood Count 4.9x10^3/uL (4.0-11.0) 5.7x10^3/uL (4.0-11.0) Red Blood Count 5.17x10^6/uL (3.50-5.40) 4.61x10^6/uL (3.50-5.40) Hemoglobin 12.0g/dL (12.0-15.5) 10.8g/dL (12.0-15.5) Hematocrit 38.7% (36.0-47.0) 34.3% (36.0-47.0) Mean Corpuscular Volume 75fL (79-100) 74fL (79-100) Mean Corpuscular Hemoglobin 23pg (25-35) 24pg (25-35) Mean Corpuscular Hemoglobin Concent 31g/dL (31-37) 32g/dL (31-37) Red Cell Distribution Width 17.1% (11.5-14.5) 17.0% (11.5-14.5) Platelet Count 331x10^3/uL (140-400) 285x10^3/uL (140-400) Neutrophils (%) (Auto) 71% (31-73) 56% (31-73) Lymphocytes (%) (Auto) 21% (24-48) 36% (24-48) Monocytes (%) (Auto) 7% (0-9) 7% (0-9) Eosinophils (%) (Auto) 0% (0-3) 2% (0-3) Basophils (%) (Auto) 0% (0-3) 0% (0-3) Neutrophils # (Auto) 3.5x10^3uL (1.8-7.7) 3.2x10^3uL (1.8-7.7) Lymphocytes # (Auto) 1.1x10^3/uL (1.0-4.8) 2.0x10^3/uL (1.0-4.8) Monocytes # (Auto) 0.4x10^3/uL (0.0-1.1) 0.4x10^3/uL (0.0-1.1) Eosinophils # (Auto) 0.0x10^3/uL (0.0-0.7) 0.1x10^3/uL (0.0-0.7) Basophils # (Auto) 0.0x10^3/uL (0.0-0.2) 0.0x10^3/uL (0.0-0.2) Sodium Level 141mmol/L (136-145) 142mmol/L (136-145) Potassium Level 3.8mmol/L (3.5-5.1) 3.7mmol/L (3.5-5.1) Chloride Level 104mmol/L (98-107) 108mmol/L (98-107) Carbon Dioxide Level 29mmol/L (21-32) 24mmol/L (21-32) Anion Gap 8 (6-14) 10 (6-14) Blood Urea Nitrogen 11mg/dL (7-20) 10mg/dL (7-20) Creatinine 0.8mg/dL (0.6-1.0) 0.7mg/dL (0.6-1.0) Estimated GFR (Cockcroft-Gault) 110.7 129.1 BUN/Creatinine Ratio 14 (6-20) Glucose Level 102mg/dL (70-99) 103mg/dL (70-99) Calcium Level 9.5mg/dL (8.5-10.1) 8.5mg/dL (8.5-10.1) Total Bilirubin 1.2mg/dL (0.2-1.0) Aspartate Amino Transf (AST/SGOT) 312U/L (15-37) Alanine Aminotransferase (ALT/SGPT) 199U/L (14-59) Alkaline Phosphatase 145U/L (46-116) Total Protein 8.0g/dL (6.4-8.2) Albumin 3.5g/dL (3.4-5.0) Albumin/Globulin Ratio 0.8 (1.0-1.7) Lipase 124U/L (73-393) Iron Level 49ug/dL (50-170) Total Iron Binding Capacity 285ug/dL (250-450) Iron Saturation 17% (15-34) Problem List Problems Medical Problems: (1) Choledocholithiasis Status: Acute (2) Elevated transaminase level Status: Acute (3) Hyperbilirubinemia Status: Acute Problems: RAYMOND MANCUSO MD Dec 29, 2016 11:23
[2016-12-29] MEDS ORDERED: DESFLURANE > 120 MINUTES IH ONE (11:24)
[2016-12-29] MEDS ORDERED: PROPOFOL 20 ML IV ONE ×2 (11:24→12:55)
[2016-12-29] MEDS ORDERED: LIDOCAINE 2% 100 MG/5 ML DISP.SYRIN. ONE ×2 (11:24→12:50)
[2016-12-29] MEDS ORDERED: DEXAMETHASONE SOD PHOS 20 MG/5 ML VIAL. ONE ×2 (11:24→12:26)
--- NOTE | 2016-12-29 11:27 | PDOC ---
Objective: Objective: Out for surgery. Vital Signs: Vital Signs Date Time Temp Pulse Resp B/P Pulse Ox O2 Delivery O2 Flow Rate FiO2 12/29/16 09:45 16 Room Air 12/29/16 07:00 98.3 67 98/63 96 98.3 Labs: Laboratory Tests Test 12/28/16 11:57 12/28/16 12:01 12/28/16 12:05 12/29/16 04:15 Urine Collection Type Unknown Urine Color Yellow Urine Clarity Clear Urine pH 8.0 Urine Specific [place] 1.020 Urine Protein Negativemg/dL Urine Glucose (UA) Negativemg/dL Urine Ketones (Stick) Negativemg/dL Urine Blood Negative Urine Nitrite Negative Urine Bilirubin Negative Urine Urobilinogen Dipstick 1.0mg/dL Urine Leukocyte Esterase Trace Urine RBC 1-2/HPF Urine WBC 1-4/HPF Urine Squamous Epithelial Cells Few/LPF Urine Bacteria Few/HPF Urine Mucus Slight/LPF Bedside Urine HCG, Qualitative Hcg negative White Blood Count 4.9x10^3/uL 5.7x10^3/uL Red Blood Count 5.17x10^6/uL 4.61x10^6/uL Hemoglobin 12.0g/dL 10.8g/dL Hematocrit 38.7% 34.3% Mean Corpuscular Volume 75fL 74fL Mean Corpuscular Hemoglobin 23pg 24pg Mean Corpuscular Hemoglobin Concent 31g/dL 32g/dL Red Cell Distribution Width 17.1% 17.0% Platelet Count 331x10^3/uL 285x10^3/uL Neutrophils (%) (Auto) 71% 56% Lymphocytes (%) (Auto) 21% 36% Monocytes (%) (Auto) 7% 7% Eosinophils (%) (Auto) 0% 2% Basophils (%) (Auto) 0% 0% Neutrophils # (Auto) 3.5x10^3uL 3.2x10^3uL Lymphocytes # (Auto) 1.1x10^3/uL 2.0x10^3/uL Monocytes # (Auto) 0.4x10^3/uL 0.4x10^3/uL Eosinophils # (Auto) 0.0x10^3/uL 0.1x10^3/uL Basophils # (Auto) 0.0x10^3/uL 0.0x10^3/uL Sodium Level 141mmol/L 142mmol/L Potassium Level 3.8mmol/L 3.7mmol/L Chloride Level 104mmol/L 108mmol/L Carbon Dioxide Level 29mmol/L 24mmol/L Anion Gap 8 10 Blood Urea Nitrogen 11mg/dL 10mg/dL Creatinine 0.8mg/dL 0.7mg/dL Estimated GFR (Cockcroft-Gault) 110.7 129.1 BUN/Creatinine Ratio 14 Glucose Level 102mg/dL 103mg/dL Calcium Level 9.5mg/dL 8.5mg/dL Total Bilirubin 1.2mg/dL Aspartate Amino Transf (AST/SGOT) 312U/L Alanine Aminotransferase (ALT/SGPT) 199U/L Alkaline Phosphatase 145U/L Total Protein 8.0g/dL Albumin 3.5g/dL Albumin/Globulin Ratio 0.8 Lipase 124U/L Iron Level 49ug/dL Total Iron Binding Capacity 285ug/dL Iron Saturation 17% PE: no exam A/P: RUQ/epigastric pain, nausea Elevated LFTs Cholelithiasis, mildly dilated CBD -- Cholecystectomy w/ IOC today. Will follow. DOUG EAGLE Dec 29, 2016 11:27
[2016-12-29] MEDS ORDERED: FENTANYL PF 100 MCG/2 ML VIAL. IV PRN (11:30)
[2016-12-29] MEDS ORDERED: PROCHLORPERAZINE 10 MG/2 ML VIAL. IV PRN (11:30)
[2016-12-29] MEDS ORDERED: LIDOCAINE 1% 1 ML SYRINGE. ID PRN (11:30)
[2016-12-29] MEDS ORDERED: HYDROMORPHONE 2 MG/ML VIAL. IV PRN (11:30)
[2016-12-29] MEDS ORDERED: ONDANSETRON PF 4 MG/2 ML VIAL. IV PRN ×2 (11:30→13:00)
[2016-12-29] MEDS ORDERED: SUCCINYLCHOLINE 200 MG/10 ML VIAL. ONE (11:40)
[2016-12-29] MEDS ORDERED: FENTANYL PF 100 MCG/2 ML VIAL. ONE (12:10)
[2016-12-29] MEDS ORDERED: GLUCAGON,HUMAN RECOMBINANT 1 MG/ML VIAL. ONE (12:25)
--- NOTE | 2016-12-29 12:42 | RAD ---
EXAM: Intraoperative cholangiogram. HISTORY: Intraoperative cholangiogram. COMPARISON: None. FINDINGS: 6 fluoroscopic images are obtained intraoperatively during injection of the cystic duct remnant after cholecystectomy. There is a small filling defect within the distal common duct at the ampulla, suggesting a small stone. The common duct is at least mildly dilated. There is also mild intrahepatic biliary dilatation. Fluoroscopy time 0.8 minutes. IMPRESSION: 1. Small filling defect within the distal common duct at the ampulla. Correlate for retained stone. 2. At least mild intra and extrahepatic biliary dilatation..
[2016-12-29] MEDS ORDERED: GLYCOPYRROLATE 1 MG/5 ML VIAL. ONE (12:44)
[2016-12-29] MEDS ORDERED: NEOSTIGMINE METHYLSULFATE 5 MG/5 ML SYRINGE. ONE (12:44)
--- NOTE | 2016-12-29 12:54 | PDOC ---
PROGRESS NOTES Chief Complaint Chief Complaint choledocholithiasis transaminitis, hyperbili microcytosis with anemia, iron level OK History of Present Illness History of Present Illness to OR today, pt seen briefly beforehand sx control post-op GI following, possible retained stone intraop cholangio IMPRESSION: 1. Small filling defect within the distal common duct at the ampulla. Correlate for retained stone. 2. At least mild intra and extrahepatic biliary dilatation.. Vitals Vitals Vital Signs Date Time Temp Pulse Resp B/P Pulse Ox O2 Delivery O2 Flow Rate FiO2 12/29/16 11:30 98.6 58 21 132/88 100 Room Air 98.6 Physical Exam General: Alert, Oriented X3, Cooperative, mild distress Abdomen: Normal bowel sounds, Other (tender ROQ, no peritoneal sign) Extremities: No cyanosis, No edema Labs LABS Laboratory Tests Test 12/29/16 04:15 White Blood Count 5.7x10^3/uL (4.0-11.0) Red Blood Count 4.61x10^6/uL (3.50-5.40) Hemoglobin 10.8g/dL (12.0-15.5) Hematocrit 34.3% (36.0-47.0) Mean Corpuscular Volume 74fL (79-100) Mean Corpuscular Hemoglobin 24pg (25-35) Mean Corpuscular Hemoglobin Concent 32g/dL (31-37) Red Cell Distribution Width 17.0% (11.5-14.5) Platelet Count 285x10^3/uL (140-400) Neutrophils (%) (Auto) 56% (31-73) Lymphocytes (%) (Auto) 36% (24-48) Monocytes (%) (Auto) 7% (0-9) Eosinophils (%) (Auto) 2% (0-3) Basophils (%) (Auto) 0% (0-3) Neutrophils # (Auto) 3.2x10^3uL (1.8-7.7) Lymphocytes # (Auto) 2.0x10^3/uL (1.0-4.8) Monocytes # (Auto) 0.4x10^3/uL (0.0-1.1) Eosinophils # (Auto) 0.1x10^3/uL (0.0-0.7) Basophils # (Auto) 0.0x10^3/uL (0.0-0.2) Sodium Level 142mmol/L (136-145) Potassium Level 3.7mmol/L (3.5-5.1) Chloride Level 108mmol/L (98-107) Carbon Dioxide Level 24mmol/L (21-32) Anion Gap 10 (6-14) Blood Urea Nitrogen 10mg/dL (7-20) Creatinine 0.7mg/dL (0.6-1.0) Estimated GFR (Cockcroft-Gault) 129.1 Glucose Level 103mg/dL (70-99) Calcium Level 8.5mg/dL (8.5-10.1) Iron Level 49ug/dL (50-170) Total Iron Binding Capacity 285ug/dL (250-450) Iron Saturation 17% (15-34) Review of Systems Review of Systems abd pain Assessment and Plan Assessmemt and Plan Problems Medical Problems: (1) Choledocholithiasis Status: Acute (2) Elevated transaminase level Status: Acute (3) Hyperbilirubinemia Status: Acute Problems: Comment Review of Relevant I have reviewed the following items katie (where applicable) has been applied. Labs Laboratory Tests Test 12/28/16 11:57 12/28/16 12:01 12/28/16 12:05 12/29/16 04:15 Urine Collection Type Unknown Urine Color Yellow Urine Clarity Clear Urine pH 8.0 Urine Specific [place] 1.020 Urine Protein Negativemg/dL (NEG-TRACE) Urine Glucose (UA) Negativemg/dL (NEG) Urine Ketones (Stick) Negativemg/dL (NEG) Urine Blood Negative (NEG) Urine Nitrite Negative (NEG) Urine Bilirubin Negative (NEG) Urine Urobilinogen Dipstick 1.0mg/dL (0.2 mg/dL) Urine Leukocyte Esterase Trace (NEG) Urine RBC 1-2/HPF (0-2) Urine WBC 1-4/HPF (0-4) Urine Squamous Epithelial Cells Few/LPF Urine Bacteria Few/HPF (0-FEW) Urine Mucus Slight/LPF Bedside Urine HCG, Qualitative Hcg negative (Negative) White Blood Count 4.9x10^3/uL (4.0-11.0) 5.7x10^3/uL (4.0-11.0) Red Blood Count 5.17x10^6/uL (3.50-5.40) 4.61x10^6/uL (3.50-5.40) Hemoglobin 12.0g/dL (12.0-15.5) 10.8g/dL (12.0-15.5) Hematocrit 38.7% (36.0-47.0) 34.3% (36.0-47.0) Mean Corpuscular Volume 75fL (79-100) 74fL (79-100) Mean Corpuscular Hemoglobin 23pg (25-35) 24pg (25-35) Mean Corpuscular Hemoglobin Concent 31g/dL (31-37) 32g/dL (31-37) Red Cell Distribution Width 17.1% (11.5-14.5) 17.0% (11.5-14.5) Platelet Count 331x10^3/uL (140-400) 285x10^3/uL (140-400) Neutrophils (%) (Auto) 71% (31-73) 56% (31-73) Lymphocytes (%) (Auto) 21% (24-48) 36% (24-48) Monocytes (%) (Auto) 7% (0-9) 7% (0-9) Eosinophils (%) (Auto) 0% (0-3) 2% (0-3) Basophils (%) (Auto) 0% (0-3) 0% (0-3) Neutrophils # (Auto) 3.5x10^3uL (1.8-7.7) 3.2x10^3uL (1.8-7.7) Lymphocytes # (Auto) 1.1x10^3/uL (1.0-4.8) 2.0x10^3/uL (1.0-4.8) Monocytes # (Auto) 0.4x10^3/uL (0.0-1.1) 0.4x10^3/uL (0.0-1.1) Eosinophils # (Auto) 0.0x10^3/uL (0.0-0.7) 0.1x10^3/uL (0.0-0.7) Basophils # (Auto) 0.0x10^3/uL (0.0-0.2) 0.0x10^3/uL (0.0-0.2) Sodium Level 141mmol/L (136-145) 142mmol/L (136-145) Potassium Level 3.8mmol/L (3.5-5.1) 3.7mmol/L (3.5-5.1) Chloride Level 104mmol/L (98-107) 108mmol/L (98-107) Carbon Dioxide Level 29mmol/L (21-32) 24mmol/L (21-32) Anion Gap 8 (6-14) 10 (6-14) Blood Urea Nitrogen 11mg/dL (7-20) 10mg/dL (7-20) Creatinine 0.8mg/dL (0.6-1.0) 0.7mg/dL (0.6-1.0) Estimated GFR (Cockcroft-Gault) 110.7 129.1 BUN/Creatinine Ratio 14 (6-20) Glucose Level 102mg/dL (70-99) 103mg/dL (70-99) Calcium Level 9.5mg/dL (8.5-10.1) 8.5mg/dL (8.5-10.1) Total Bilirubin 1.2mg/dL (0.2-1.0) Aspartate Amino Transf (AST/SGOT) 312U/L (15-37) Alanine Aminotransferase (ALT/SGPT) 199U/L (14-59) Alkaline Phosphatase 145U/L (46-116) Total Protein 8.0g/dL (6.4-8.2) Albumin 3.5g/dL (3.4-5.0) Albumin/Globulin Ratio 0.8 (1.0-1.7) Lipase 124U/L (73-393) Iron Level 49ug/dL (50-170) Total Iron Binding Capacity 285ug/dL (250-450) Iron Saturation 17% (15-34) Laboratory Tests Test 12/29/16 04:15 White Blood Count 5.7x10^3/uL (4.0-11.0) Red Blood Count 4.61x10^6/uL (3.50-5.40) Hemoglobin 10.8g/dL (12.0-15.5) Hematocrit 34.3% (36.0-47.0) Mean Corpuscular Volume 74fL (79-100) Mean Corpuscular Hemoglobin 24pg (25-35) Mean Corpuscular Hemoglobin Concent 32g/dL (31-37) Red Cell Distribution Width 17.0% (11.5-14.5) Platelet Count 285x10^3/uL (140-400) Neutrophils (%) (Auto) 56% (31-73) Lymphocytes (%) (Auto) 36% (24-48) Monocytes (%) (Auto) 7% (0-9) Eosinophils (%) (Auto) 2% (0-3) Basophils (%) (Auto) 0% (0-3) Neutrophils # (Auto) 3.2x10^3uL (1.8-7.7) Lymphocytes # (Auto) 2.0x10^3/uL (1.0-4.8) Monocytes # (Auto) 0.4x10^3/uL (0.0-1.1) Eosinophils # (Auto) 0.1x10^3/uL (0.0-0.7) Basophils # (Auto) 0.0x10^3/uL (0.0-0.2) Sodium Level 142mmol/L (136-145) Potassium Level 3.7mmol/L (3.5-5.1) Chloride Level 108mmol/L (98-107) Carbon Dioxide Level 24mmol/L (21-32) Anion Gap 10 (6-14) Blood Urea Nitrogen 10mg/dL (7-20) Creatinine 0.7mg/dL (0.6-1.0) Estimated GFR (Cockcroft-Gault) 129.1 Glucose Level 103mg/dL (70-99) Calcium Level 8.5mg/dL (8.5-10.1) Iron Level 49ug/dL (50-170) Total Iron Binding Capacity 285ug/dL (250-450) Iron Saturation 17% (15-34) Medications Current Medications Fentanyl Citrate 50 mcg 50 mcg PRN Q15MIN PRN IV PAIN GREATER THAN 3/10 Last administered on 12/28/16t 15:21; Start 12/28/16 at 13:15; Stop 12/29/16 at 13:14 Sodium Chloride (Iv Sodium Chloride 0.9% 1000ml Bag) 1,000 ml @ 1,000 mls/hr Q1H IV Last administered on 12/28/16 13:18; Start 12/28/16 at 13:06; Stop at 14:05; Status DC Ondansetron HCl (Zofran) 4 mg 1X ONCE IV Last administered on 12/28/16 13:22; Start 12/28/16 at 13:15; Stop 12/28/16 at 13:16; Status DC Famotidine (Pepcid) 20 mg 1X ONCE IVP Last administered on 12/28/16 13:21; Start 12/28/16 at 13:15; Stop 12/28/16 at 13:16; Status DC Ondansetron HCl (Zofran) 4 mg PRN Q8HRS PRN IV NAUSEA/VOMITING; Start 12/28/16 at 15:00; Stop 12/29/16 at 14:59 Fentanyl Citrate 50 mcg 50 mcg PRN Q2HR PRN IV PAIN Last administered on 09:15; Start 12/28/16 at 15:00; Stop 12/29/16 at 14:59 Sodium Chloride 1,000 ml @ 125 mls/hr Q8H IV Last administered on 12/29/16 09: 19; Start 12/28/16 at 15:00; Stop 12/29/16 at 14:59 Cefazolin Sodium/ Dextrose 50 ml @ 100 mls/hr 1X PREOP IV Last administered on 12/29/16 12:08; Start 12/29/16 at 10:45; Stop 12/30/16 at 18:00 Heparin Sodium (Porcine)/Sodium Chloride (Iv Sodium Chloride 0.9% 1000ml Bag) 1, 001 ml @ 1,001 mls/hr 1X PERIOP ONCE IRR Last administered on 12/29/16 12:11 ; Start 12/29/16 at 11:00; Stop 12/29/16 at 11:59; Status DC Bupivacaine HCl/ Epinephrine Bitart (Sensorcain-Mpf Epi 0.5%-[id number]) 30 ml STK -MED ONCE .ROUTE Last administered on 12/29/16 12:10; Start 12/29/16 at 11:14; Stop 12/29/16 at 11:15; Status DC Iohexol (Omnipaque 300 Mg/ml) 50 ml STK-MED ONCE .ROUTE ; Start 12/29/16 at 11:14 ; Stop 12/29/16 at 11:15; Status DC Cellulose 1 each STK-MED ONCE .ROUTE ; Start 12/29/16 at 11:15; Stop 12/29/16 at 11:16; Status DC Bisacodyl (Dulcolax Supp) 10 mg STK-MED ONCE .ROUTE Last administered on 12:10; Start 12/29/16 at 11:15; Stop 12/29/16 at 11:16; Status DC Ondansetron HCl (Zofran) 4 mg PRN Q6HRS PRN IV Nausea; Start 12/29/16 at 11:30; Stop 12/30/16 at 11:29 Fentanyl Citrate (Fentanyl 2ml Vial) 25 mcg PRN Q5MIN PRN IV MILD PAIN; Start 12/29/16 at 11:30; Stop 12/30/16 at 11:29 Fentanyl Citrate (Fentanyl 2ml Vial) 50 mcg PRN Q5MIN PRN IV MODERATE PAIN; Start 12/29/16 at 11:30; Stop 12/30/16 at 11:29 Morphine Sulfate 1 mg 1 mg PRN Q10MIN PRN IV SEVERE PAIN; Start 12/29/16 at 11: 30; Stop 12/30/16 at 11:29 Lactated Ringer's (Iv Lactated Ringers) 1,000 ml @ 0 mls/hr Q0M IV Last administered on 12/29/16 11:34; Start 12/29/16 at 11:18; Stop 12/29/16 at 23:17 Lidocaine HCl 2 ml 1X PRN PRN ID IV START; Start 12/29/16 at 11:30; Stop at 11:29 Hydromorphone HCl (Dilaudid) 0.5 mg PRN Q10MIN PRN IV SEV PAIN,Second choice; Start 12/29/16 at 11:30; Stop 12/30/16 at 11:29 Prochlorperazine Edisylate (Compazine) 5 mg PACU PRN PRN IV NAUSEA; Start at 11:30; Stop 12/30/16 at 11:29 Rocuronium [place] (Zemuron) 50 mg STK-MED ONCE .ROUTE ; Start 12/29/16 at 11:23 ; Stop 12/29/16 at 11:24; Status DC Rocuronium [place] (Zemuron) 50 mg STK-MED ONCE .ROUTE ; Start 12/29/16 at 11:23 ; Stop 12/29/16 at 11:24; Status DC Dexamethasone Sodium Phosphate 20 mg 20 mg STK-MED ONCE .ROUTE ; Start 12/29/16 at 11:24; Stop 12/29/16 at 11:25; Status DC Propofol (Diprivan) 20 ml @ As Directed STK-MED ONCE IV ; Start 12/29/16 at 11:24 ; Stop 12/29/16 at 11:25; Status DC Lidocaine HCl 100 mg STK-MED ONCE .ROUTE ; Start 12/29/16 at 11:24; Stop 12/29/16 at 11:25; Status DC Desflurane (Suprane) 90 ml STK-MED ONCE IH ; Start 12/29/16 at 11:24; Stop at 11:25; Status DC Succinylcholine Chloride ([place]) 200 mg STK-MED ONCE .ROUTE ; Start 12/29/16 at 11:40; Stop 12/29/16 at 11:41; Status DC Fentanyl Citrate (Fentanyl 2ml Vial) 100 mcg STK-MED ONCE .ROUTE ; Start at 12:10; Stop 12/29/16 at 12:11; Status DC Glucagon (Glucagen) 1 mg STK-MED ONCE .ROUTE Last administered on 12/29/16t 12: 25; Start 12/29/16 at 12:25; Stop 12/29/16 at 12:26; Status DC Dexamethasone Sodium Phosphate (Decadron) 20 mg STK-MED ONCE .ROUTE ; Start 12/29 at 12:26; Stop 12/29/16 at 12:27; Status DC Glycopyrrolate (Robinul) 1 mg STK-MED ONCE .ROUTE ; Start 12/29/16 at 12:44; Stop 12/29/16 at 12:45; Status DC Neostigmine Methylsulfate 5 mg STK-MED ONCE .ROUTE ; Start 12/29/16 at 12:44; Stop 12/29/16 at 12:45; Status DC Lidocaine HCl 100 mg STK-MED ONCE .ROUTE ; Start 12/29/16 at 12:50; Stop 12/29/16 at 12:51; Status DC Active Scripts Active Motrin Ib (Ibuprofen) 200 Mg Tablet 800 Mg PO TID PRN [place] 5-325 Tablet (Acetaminophen/Hydrocodone Bitart) 1 Each Tablet 1 Tab PO PRN Q6HRS PRN Vitals/I & O Vital Sign - Last 24 Hours 12/28/16 12/28/16 12/28/16 12/28/16 13:04 13:25 13:34 14:04 Pulse 59 72 52 Resp 16 B/P 106/72 103/69 97/56 Pulse Ox 98 97 99 O2 Delivery Room Air Room Air Room Air 12/28/16 12/28/16 12/28/16 12/28/16 14:34 15:14 15:21 15:34 Pulse 54 64 56 Resp 16 B/P 109/57 110/58 106/61 Pulse Ox 99 99 100 98 O2 Delivery Room Air Room Air Room Air Room Air 12/28/16 12/28/16 12/28/16 12/28/16 15:55 16:06 16:31 17:41 Temp 97.7 97.7 Pulse 66 Resp 18 B/P 115/70 Pulse Ox 100 O2 Delivery Room Air Room Air Room Air Room Air 12/28/16 12/28/16 12/28/16 12/28/16 19:15 20:00 20:17 22:59 Temp 98.0 98.1 98.0 98.1 Pulse 60 76 Resp 18 14 18 B/P 115/67 117/54 Pulse Ox 96 98 O2 Delivery Room Air Room Air Room Air Room Air 12/29/16 12/29/16 12/29/16 12/29/16 03:02 07:00 09:15 09:45 Temp 97.7 98.3 97.7 98.3 Pulse 75 67 Resp 18 18 16 16 B/P 107/63 98/63 Pulse Ox 93 96 O2 Delivery Room Air Room Air Room Air Room Air 12/29/16 11:30 Temp 98.6 98.6 Pulse 58 Resp 21 B/P 132/88 Pulse Ox 100 O2 Delivery Room Air Intake and Output 12/28/16 12/28/16 12/29/16 15:00 23:00 07:00 Intake Total 1000 ml Output Total 0 ml Balance 1000 ml 0 ml DIONICIO VELÁSQUEZ MD Dec 29, 2016 12:54
--- NOTE | 2016-12-29 12:58 | PDOC ---
BRIEF OPERATIVE NOTE Pre-Op Diagnosis Calculous cholecystitis Post-Op Diagnosis same, choledocholithiasis Procedure Performed Lap cathi with grams Surgeon Des Anesthesia Type: General, Local Blood Loss 50 IV Fluid 1000 Specimens Obtained GB Findings IOC with filling defect in distal CBD Complications none Additional Remarks [id number] RAYMOND MANCUSO MD Dec 29, 2016 12:58
[2016-12-29] MEDS ORDERED: DEXTROSE 50% 25 GM / 50ML DISP.SYRIN. IV PRN (13:00)
[2016-12-29] MEDS ORDERED: 0.9 % SODIUM CHLORIDE 10 ML DISP.SYRIN. IV PRN (13:00)
[2016-12-29] MEDS ORDERED: SUGAMMADEX SODIUM 200 MG/2 ML VIAL. IVP ONE (13:06)
[2016-12-29] MEDS: MORPHINE SULFATE 2 MG/ML DISP.SYRIN. IV PRN ×2 (13:28→13:45)
[2016-12-29] MEDS: IV RINGERS,LACTATED 1000ML 1,000 ML IV SCH ×2 (14:40→22:49)
[2016-12-29] MEDS: HYDROCODONE/APAP 5/325MG TABLET. PO PRN (19:33)
--- NOTE | 2016-12-29 19:42 | OP ---
DATE OF SURGERY: 12/29/2016 REFERRING PHYSICIAN: Dr. Nenita Chua, Dr. Mesha Garner, Dr. Pablo Soto, and Dr. Joseluis Nunez. Thank you for the consult. PREOPERATIVE DIAGNOSIS: Calculous cholecystitis. POSTOPERATIVE DIAGNOSIS: Calculous cholecystitis, choledocholithiasis. PROCEDURE: Laparoscopic cholecystectomy with intraoperative cholangiogram ____. ESTIMATED BLOOD LOSS: 50 mL. FLUIDS: 1000 mL. COMPLICATIONS: None. FINDINGS: Indurated, inflamed gallbladder with gallbladder wall edema, distended intrahepatic and extrahepatic biliary duct, filling defect of the distal common bile duct. INDICATIONS: This is a 21-year-old female who presents with complaints of epigastric and right upper quadrant abdominal pain, imaging concerning for calculous cholecystitis. So, it was felt the patient best be served by laparoscopic cholecystectomy with intraoperative cholangiogram. The patient and the patient's aunt were informed of the risks, benefits, and alternatives to the procedures, risks including, but not limited to bleeding, infection, damage to surrounding structure, risks from anesthesia, and risk from an open procedure. The patient and the patient's aunt appeared to understand, their insightful questions were answered, and they agreed to proceed. PROCEDURE: After obtaining informed consent, the patient was taken to the operating room, induced endotracheal general anesthesia. The patient was prepped and draped in the usual fashion in the anterior abdominal wall. Marcaine 0.5% with Epinephrine was injected in the supraumbilical area. An incision was made using 15 mm scalpel. A 5-mm non-bladed trocar was introduced into the abdominal cavity under vision of laparoscope. Pneumoperitoneum was established. Additional 12 port was placed in the epigastrium and another 5 mm port placed in right upper quadrant, all under direct vision of laparoscope. The abdominal contents were explored. The patient was obese making the procedure fairly difficulty throughout. The liver was mildly fatty in nature. Gallbladder wall was edematous, visualized parts of viscera and pneumoperitoneum, normal appearance. There was no evidence of trocar injury. The gallbladder was grasped, the triangle of [place]ot was exposed. Peritoneum ____ cystic duct was taken on using blunt dissection. Circumferential dissection was performed of the cystic duct and the cystic duct infundibular junction. The cystic artery was noted to be extremely adherent to the cystic duct and was not able to be off easily. A clip was placed on the cystic duct infundibular junction. Incision was made on the cystic duct using Endo Angelique. A cholangiogram catheter was introduced, and cholangiogram was obtained. Cholangiogram demonstrated dilated intrahepatic and extrahepatic ducts. There appeared to be a small filling defect in the distal common bile duct. This was not able to be loosened despite the use of Glucagon. It was felt ____ the patient best be served by postprocedural ERCP. Cholangiogram catheter was removed. Multiple clips were placed on the cystic duct stump, clean Hem-o-fatou, and the cystic duct was divided. The cystic artery was controlled with the cystic duct clips. The gallbladder was taken off gallbladder fossa sharply using electrocautery. Gallbladder was placed EndoCatch bag, brought out through the epigastric port and passed off field and sent to Pathology for evaluation. The abdominal contents were copiously irrigated with normal saline solution. There was no evidence of bleeding or other pathology at the time of the closure. All ports were removed under direct vision of the laparoscope. There was no wet spots or bleeding. Fascial defect in the epigastrium was reapproximated using interrupted 0 Vicryl stitches and closed. All skin incisions were reapproximated with multiple interrupted 4-0 Vicryl in aseptic fashion. Sterile dressings were placed over all wounds. The patient tolerated the procedure well and she was brought to recovery room in stable condition. All counts were correct. There was no immediate complication. ESTELITA MARTINEZ MD DR: NILES/cody JOB#: [id number] / [id number] MESHA Liu MD, DANIEL MD MARSH, PABLO ESPINOZA MD, MD
[2016-12-29] MEDS: DOCUSATE SODIUM 100 MG CAPSULE PO SCH (20:38)
--- NOTE | 2016-12-30 00:57 | CONS ---
DATE OF CONSULTATION: 12/29/2016 REFERRING PHYSICIANS: Dr. Elian Soto, Dr. Nenita Chua, Dr. Mesha Garner, Dr. Joseluis Nunez. Thank you for the consult. CHIEF COMPLAINT: Epigastric right upper quadrant abdominal pain. DIAGNOSIS: Calculus cholecystitis. PLANNED PROCEDURE: Laparoscopic cholecystectomy with intraoperative cholangiogram. HISTORY OF PRESENT ILLNESS: This is a 21-year-old female who presented to the Emergency Room with complaints of epigastric right upper quadrant abdominal pain. This worsened last night at midnight. However, has been having pain for several months and felt that this is secondary to menstrual cramps. She denies significant nausea, vomiting, fevers or chills or changes in bowel function. ALLERGIES: She has no known drug allergies. MEDICATIONS: None. PAST MEDICAL HISTORY: None. PAST SURGICAL HISTORY: None. SOCIAL HISTORY: No tobacco, no significant alcohol use. FAMILY HISTORY: Noncontributory. REVIEW OF SYSTEMS: All systems reviewed and negative except for HPI. PHYSICAL EXAMINATION: GENERAL: Well-developed, obese female. No obvious distress. She is 110 kilograms with a BMI of 39. VITAL SIGNS: She is afebrile. Vital signs within normal limits. HEENT: Normocephalic, anicteric sclerae. Oropharynx clear. NECK: Supple. CHEST: Bilateral chest excursion. ABDOMEN: Soft, nondistended, obese. There is tenderness to palpation of the right upper quadrant. EXTREMITIES: No clubbing, cyanosis or edema. LABORATORY DATA: Her CBC is essentially unremarkable. She is noted to have elevation of her liver function tests. Lipase is normal. Urinalysis is normal. She has a negative beta HCG. Abdominal ultrasound demonstrates cholelithiasis with tenderness to palpation of the gallbladder, mild dilatation of the common bile duct. IMPRESSION AND RECOMMENDATIONS: A 21-year-old female with calculus cholecystitis. We will plan on laparoscopic cholecystectomy with intraoperative cholangiogram. The patient and patient's aunt over the phone are informed of the risks, benefits, and alternatives to procedure, risks including but not limited to bleeding, infection, damage to the surrounding structures, risk of anesthesia, risk of an open procedure. The patient and the patient's aunt appeared to understand. Their questions were answered and they agreed to proceed. Thank you for allowing participation in the care of this pleasant patient. RAYMOND MANCUSO MD DR: AMBROSE/cody JOB#: [id number] / [id number] MESHA Liu MD, NENITA MONTOYA MD, MD, SCOTT MD
[2016-12-30] MEDS: HYDROCODONE/APAP 5/325MG TABLET. PO PRN ×5 (01:29→23:08)
[2016-12-30] MEDS: FENTANYL PF 100 MCG/2 ML VIAL. IV PRN ×6 (01:30→19:27)
[2016-12-30 03:00] VITALS: BP 132/79
[2016-12-30 06:43] LABS: ALBUMIN/GLOBULIN RATIO 0.8 (1.0-1.7); CALCIUM 9.3 mg/dL (8.5-10.1); CREATININE 0.8 mg/dL (0.6-1.0); GFR 110.7; POTASSIUM 4.3 mmol/L (3.5-5.1); TOTAL BILIRUBIN 0.9 mg/dL (0.2-1.0); TOTAL PROTEIN 6.6 g/dL (6.4-8.2)
[2016-12-30 07:00] VITALS: BP 136/81
--- NOTE | 2016-12-30 08:15 | PDOC ---
SURGICAL PROGRESS NOTE Subjective Pt sleepy, not very cooperative with exam, but not combatative Vital Signs Vital Signs Date Time Temp Pulse Resp B/P Pulse Ox O2 Delivery O2 Flow Rate FiO2 12/30/16 07:00 97.7 66 18 136/81 97 Room Air 97.7 12/29/16 16:17 2.0 I&O Intake and Output 12/30/16 07:00 Intake Total 0 ml Output Total 1010 ml Balance -1010 ml Intake Oral 0 ml Output Urine Total 960 ml Estimated Blood Loss 50 ml # Voids 3 # Bowel Movements 1 General: No acute distress Abdomen: Soft, Other (mild TTP epigastric incision) Labs Laboratory Tests Test 12/28/16 11:57 12/28/16 12:01 12/28/16 12:05 12/29/16 04:15 Urine Collection Type Unknown Urine Color Yellow Urine Clarity Clear Urine pH 8.0 Urine Specific [place] 1.020 Urine Protein Negativemg/dL (NEG-TRACE) Urine Glucose (UA) Negativemg/dL (NEG) Urine Ketones (Stick) Negativemg/dL (NEG) Urine Blood Negative (NEG) Urine Nitrite Negative (NEG) Urine Bilirubin Negative (NEG) Urine Urobilinogen Dipstick 1.0mg/dL (0.2 mg/dL) Urine Leukocyte Esterase Trace (NEG) Urine RBC 1-2/HPF (0-2) Urine WBC 1-4/HPF (0-4) Urine Squamous Epithelial Cells Few/LPF Urine Bacteria Few/HPF (0-FEW) Urine Mucus Slight/LPF Bedside Urine HCG, Qualitative Hcg negative (Negative) White Blood Count 4.9x10^3/uL (4.0-11.0) 5.7x10^3/uL (4.0-11.0) Red Blood Count 5.17x10^6/uL (3.50-5.40) 4.61x10^6/uL (3.50-5.40) Hemoglobin 12.0g/dL (12.0-15.5) 10.8g/dL (12.0-15.5) Hematocrit 38.7% (36.0-47.0) 34.3% (36.0-47.0) Mean Corpuscular Volume 75fL (79-100) 74fL (79-100) Mean Corpuscular Hemoglobin 23pg (25-35) 24pg (25-35) Mean Corpuscular Hemoglobin Concent 31g/dL (31-37) 32g/dL (31-37) Red Cell Distribution Width 17.1% (11.5-14.5) 17.0% (11.5-14.5) Platelet Count 331x10^3/uL (140-400) 285x10^3/uL (140-400) Neutrophils (%) (Auto) 71% (31-73) 56% (31-73) Lymphocytes (%) (Auto) 21% (24-48) 36% (24-48) Monocytes (%) (Auto) 7% (0-9) 7% (0-9) Eosinophils (%) (Auto) 0% (0-3) 2% (0-3) Basophils (%) (Auto) 0% (0-3) 0% (0-3) Neutrophils # (Auto) 3.5x10^3uL (1.8-7.7) 3.2x10^3uL (1.8-7.7) Lymphocytes # (Auto) 1.1x10^3/uL (1.0-4.8) 2.0x10^3/uL (1.0-4.8) Monocytes # (Auto) 0.4x10^3/uL (0.0-1.1) 0.4x10^3/uL (0.0-1.1) Eosinophils # (Auto) 0.0x10^3/uL (0.0-0.7) 0.1x10^3/uL (0.0-0.7) Basophils # (Auto) 0.0x10^3/uL (0.0-0.2) 0.0x10^3/uL (0.0-0.2) Sodium Level 141mmol/L (136-145) 142mmol/L (136-145) Potassium Level 3.8mmol/L (3.5-5.1) 3.7mmol/L (3.5-5.1) Chloride Level 104mmol/L (98-107) 108mmol/L (98-107) Carbon Dioxide Level 29mmol/L (21-32) 24mmol/L (21-32) Anion Gap 8 (6-14) 10 (6-14) Blood Urea Nitrogen 11mg/dL (7-20) 10mg/dL (7-20) Creatinine 0.8mg/dL (0.6-1.0) 0.7mg/dL (0.6-1.0) Estimated GFR (Cockcroft-Gault) 110.7 129.1 BUN/Creatinine Ratio 14 (6-20) Glucose Level 102mg/dL (70-99) 103mg/dL (70-99) Calcium Level 9.5mg/dL (8.5-10.1) 8.5mg/dL (8.5-10.1) Total Bilirubin 1.2mg/dL (0.2-1.0) Aspartate Amino Transf (AST/SGOT) 312U/L (15-37) Alanine Aminotransferase (ALT/SGPT) 199U/L (14-59) Alkaline Phosphatase 145U/L (46-116) Total Protein 8.0g/dL (6.4-8.2) Albumin 3.5g/dL (3.4-5.0) Albumin/Globulin Ratio 0.8 (1.0-1.7) Lipase 124U/L (73-393) Iron Level 49ug/dL (50-170) Total Iron Binding Capacity 285ug/dL (250-450) Iron Saturation 17% (15-34) Test 12/30/16 05:30 Sodium Level 142mmol/L (136-145) Potassium Level 4.3mmol/L (3.5-5.1) Chloride Level 106mmol/L (98-107) Carbon Dioxide Level 29mmol/L (21-32) Anion Gap 7 (6-14) Blood Urea Nitrogen 8mg/dL (7-20) Creatinine 0.8mg/dL (0.6-1.0) Estimated GFR (Cockcroft-Gault) 110.7 BUN/Creatinine Ratio 10 (6-20) Glucose Level 108mg/dL (70-99) Calcium Level 9.3mg/dL (8.5-10.1) Total Bilirubin 0.9mg/dL (0.2-1.0) Aspartate Amino Transf (AST/SGOT) 133U/L (15-37) Alanine Aminotransferase (ALT/SGPT) 169U/L (14-59) Alkaline Phosphatase 170U/L (46-116) Total Protein 6.6g/dL (6.4-8.2) Albumin 3.0g/dL (3.4-5.0) Albumin/Globulin Ratio 0.8 (1.0-1.7) Laboratory Tests Test 12/30/16 05:30 Sodium Level 142mmol/L (136-145) Potassium Level 4.3mmol/L (3.5-5.1) Chloride Level 106mmol/L (98-107) Carbon Dioxide Level 29mmol/L (21-32) Anion Gap 7 (6-14) Blood Urea Nitrogen 8mg/dL (7-20) Creatinine 0.8mg/dL (0.6-1.0) Estimated GFR (Cockcroft-Gault) 110.7 BUN/Creatinine Ratio 10 (6-20) Glucose Level 108mg/dL (70-99) Calcium Level 9.3mg/dL (8.5-10.1) Total Bilirubin 0.9mg/dL (0.2-1.0) Aspartate Amino Transf (AST/SGOT) 133U/L (15-37) Alanine Aminotransferase (ALT/SGPT) 169U/L (14-59) Alkaline Phosphatase 170U/L (46-116) Total Protein 6.6g/dL (6.4-8.2) Albumin 3.0g/dL (3.4-5.0) Albumin/Globulin Ratio 0.8 (1.0-1.7) Problem List Problems Medical Problems: (1) Choledocholithiasis Status: Acute (2) Elevated transaminase level Status: Acute (3) Hyperbilirubinemia Status: Acute Assessment/Plan s/p lap cathi GI involved to consider ERCP, possible small stone dislodged during interventions, as LFTs improved, but will defer to GI Problems: RAYMOND MANCUSO MD Dec 30, 2016 08:15
[2016-12-30] MEDS: IV RINGERS,LACTATED 1000ML 1,000 ML IV SCH ×2 (08:49→18:49)
[2016-12-30] MEDS: DOCUSATE SODIUM 100 MG CAPSULE PO SCH ×2 (09:00→19:08)
--- NOTE | 2016-12-30 09:01 | PDOC ---
Subjective: Subjective: Still hurting, although pain is different now and mostly around incisions. Says took a stool softener last night and had a runny stool. Ate some yesterday. Objective: Objective: Per RN - requesting scheduled pain meds. Family has been concerned. Has NPO sign on door this morning. Vital Signs: Vital Signs Date Time Temp Pulse Resp B/P Pulse Ox O2 Delivery O2 Flow Rate FiO2 12/30/16 07:00 97.7 66 18 136/81 97 Room Air 97.7 12/29/16 16:17 2.0 Labs: Laboratory Tests Test 12/30/16 05:30 Sodium Level 142mmol/L Potassium Level 4.3mmol/L Chloride Level 106mmol/L Carbon Dioxide Level 29mmol/L Anion Gap 7 Blood Urea Nitrogen 8mg/dL Creatinine 0.8mg/dL Estimated GFR (Cockcroft-Gault) 110.7 BUN/Creatinine Ratio 10 Glucose Level 108mg/dL Calcium Level 9.3mg/dL Total Bilirubin 0.9mg/dL Aspartate Amino Transf (AST/SGOT) 133U/L Alanine Aminotransferase (ALT/SGPT) 169U/L Alkaline Phosphatase 170U/L Total Protein 6.6g/dL Albumin 3.0g/dL Albumin/Globulin Ratio 0.8 Imaging: IOC 12/29/16 IMPRESSION: 1. Small filling defect within the distal common duct at the ampulla. Correlate for retained stone. 2. At least mild intra and extrahepatic biliary dilatation.. PE: GEN: NAD LUNGS: CTAB HEART: RRR ABD: diffusely tender to light palpation, particularly in RUQ/epigastrium NEURO/PSYCH: A & O 3, flat A/P: Calculous cholecystitis, possible choledocholithiasis, s/p cholecystectomy w/ abnormal IOC Elevated LFTs -bili, AST, ALT improved -- Discussed abnormal IOC yesterday, pt declined ERCP. Today still has pain w/ improvement of LFTs. Pain likely post-operative/ incisional. With improvement of labs, will continue to observe. Try clears. DOUG EAGLE Dec 30, 2016 09:01
[2016-12-30 11:00] VITALS: BP 114/72
--- NOTE | 2016-12-30 11:20 | OP ---
DATE OF SURGERY: 12/29/2016 REFERRING PHYSICIAN: Dr. Nenita Chua, Dr. Mesha Garner, Dr. Pablo Soto, and Dr. Joseluis Nunez. Thank you for the consult. PREOPERATIVE DIAGNOSIS: Calculous cholecystitis. POSTOPERATIVE DIAGNOSIS: Calculous cholecystitis, choledocholithiasis. PROCEDURE: Laparoscopic cholecystectomy with intraoperative cholangiogram. ESTIMATED BLOOD LOSS: 50 mL. FLUIDS: 1000 mL. COMPLICATIONS: None. FINDINGS: Indurated, inflamed gallbladder with gallbladder wall edema, distended intrahepatic and extrahepatic biliary duct, filling defect of the distal common bile duct. INDICATIONS: This is a 21-year-old female who presents with complaints of epigastric and right upper quadrant abdominal pain, imaging concerning for calculous cholecystitis. So, it was felt the patient best be served by laparoscopic cholecystectomy with intraoperative cholangiogram. The patient and the patient's aunt were informed of the risks, benefits, and alternatives to the procedures, risks including, but not limited to bleeding, infection, damage to surrounding structure, risks from anesthesia, and risk from an open procedure. The patient and the patient's aunt appeared to understand, their insightful questions were answered, and they agreed to proceed. PROCEDURE: After obtaining informed consent, the patient was taken to the operating room, induced endotracheal general anesthesia. The patient was prepped and draped in the usual fashion in the anterior abdominal wall. Marcaine 0.5% with Epinephrine was injected in the supraumbilical area. An incision was made using 15 mm scalpel. A 5-mm non-bladed trocar was introduced into the abdominal cavity under vision of laparoscope. Pneumoperitoneum was established. Additional 12 port was placed in the epigastrium and another 5 mm port placed in right upper quadrant, all under direct vision of laparoscope. The abdominal contents were explored. The patient was obese making the procedure fairly difficulty throughout. The liver was mildly fatty in nature. Gallbladder wall was edematous, visualized parts of viscera and pneumoperitoneum, normal appearance. There was no evidence of trocar injury. The gallbladder was grasped, the triangle of Calot was exposed. Peritoneum overlying the cystic duct was taken on using blunt dissection. Circumferential dissection was performed of the cystic duct and the cystic duct infundibular junction. The cystic artery was noted to be extremely adherent to the cystic duct and was not able to be off easily. A clip was placed on the cystic duct infundibular junction. Incision was made on the cystic duct using Endo Angelique. A cholangiogram catheter was introduced, and cholangiogram was obtained. Cholangiogram demonstrated dilated intrahepatic and extrahepatic ducts. There appeared to be a small filling defect in the distal common bile duct. This was not able to be loosened despite the use of Glucagon. It was felt that the patient best be served by postprocedural ERCP. Cholangiogram catheter was removed. Multiple clips were placed on the cystic duct stump, clean Hem-o-fatou, and the cystic duct was divided. The cystic artery was controlled with the cystic duct clips. The gallbladder was taken off gallbladder fossa sharply using electrocautery. Gallbladder was placed EndoCatch bag, brought out through the epigastric port and passed off field and sent to Pathology for evaluation. The abdominal contents were copiously irrigated with normal saline solution. There was no evidence of bleeding or other pathology at the time of the closure. All ports were removed under direct vision of the laparoscope. There was no wet spots or bleeding. Fascial defect in the epigastrium was reapproximated using interrupted 0 Vicryl stitches and closed. All skin incisions were reapproximated with multiple interrupted 4-0 Vicryl in aseptic fashion. Sterile dressings were placed over all wounds. The patient tolerated the procedure well and she was brought to recovery room in stable condition. All counts were correct. There was no immediate complication. RAYMOND MANCUSO MD DR: AMBROSE/cody JOB#: [id number] / [id number] MESHA Liu MD, DANIEL MD MARSH, IRA MD PROPECK, PABLO SUGGS
[2016-12-30] MEDS ORDERED: BENZOCAINE/MENTHOL LOZENGE. PO PRN (11:30)
--- NOTE | 2016-12-30 13:37 | PATHOLOGY ---
PATHOLOGY REPORT * * * * * * * * FINAL DIAGNOSIS: Gallbladder, laparoscopic cholecystectomy: - Cholelithiasis. - Chronic cholecystitis with eosinophils. COMMENT: Sections of the gallbladder show chronic inflammation with prominent numbers of admixed eosinophils. There is no evidence of malignancy. (KAYLINM:; d/t: 12/30/16) REPORT ELECTRONICALLY SIGNED BY: Santana Siddiqui M.D. DATE/TIME: 12/30/2016 13:36 * * * * * * * * GROSS PATHOLOGY: Received in formalin labeled "John Best - gallbladder and contents," is a 9.3 x 4.3 x 2.8 cm, intact gallbladder with pink-cabezas, diffusely hemorrhagic, and wrinkled serosal surfaces. Opening the gallbladder reveals light green, granular, and trabeculated mucosa and an average wall thickness of 0.1 cm. A 0.4 cm in greatest dimension yellow-green, spherical, and multinodular calculus is present and no masses are noted grossly. [employer] sections from the body and fundus are submitted along with the proximal margin in cassette A1. (TTL; 12/29/2016) INITIAL CPT CODE(S): A; 11645 Professional services [place] [address] Technical services performed by [employer] at [address] [place] [address], [facility] [address] [place] [address]. SPECIMEN(S) RECEIVED: A.Gallbladder and contents CLINICAL HISTORY: Acute choledocholelithiasis PATIENT: JOHN BEST /AGE: 5 1995 (Age: 21) PATIENT #: [id number] ALT CASE #: SPECIMEN COLLECTION DATE: 12/29/2016 SPECIMEN RECEIVED DATE: 12/29/2016 [facility] - [address] [place] [address] - PHONE: [phone] * * * END OF REPORT * * *
--- NOTE | 2016-12-30 14:38 | PDOC ---
PROGRESS NOTES Chief Complaint Chief Complaint choledocholithiasis transaminitis, hyperbili microcytosis with anemia, subclinical, dilutional and post-op expected without significant blood loss diffuse pain after procedure, shoulder and neck pain, obesity, BMI 39.4 History of Present Illness History of Present Illness to OR yesterday, feels better, still some pain sx control post-op GI following, not likely ongoing stone. labs improving discussed with Dr. Soto Vitals Vitals Vital Signs Date Time Temp Pulse Resp B/P Pulse Ox O2 Delivery O2 Flow Rate FiO2 12/30/16 12:24 16 96 Room Air 12/30/16 11:00 97.3 68 114/72 97.3 12/29/16 16:17 2.0 Physical Exam General: Alert, No acute distress Heart: Regular rate, Normal S1, Normal S2 Lungs: Clear Abdomen: Normal bowel sounds, Soft, Other (mild TTP epigastric incision) Extremities: No cyanosis, No edema Skin: No breakdown Labs LABS Laboratory Tests Test 12/30/16 05:30 Sodium Level 142mmol/L (136-145) Potassium Level 4.3mmol/L (3.5-5.1) Chloride Level 106mmol/L (98-107) Carbon Dioxide Level 29mmol/L (21-32) Anion Gap 7 (6-14) Blood Urea Nitrogen 8mg/dL (7-20) Creatinine 0.8mg/dL (0.6-1.0) Estimated GFR (Cockcroft-Gault) 110.7 BUN/Creatinine Ratio 10 (6-20) Glucose Level 108mg/dL (70-99) Calcium Level 9.3mg/dL (8.5-10.1) Total Bilirubin 0.9mg/dL (0.2-1.0) Aspartate Amino Transf (AST/SGOT) 133U/L (15-37) Alanine Aminotransferase (ALT/SGPT) 169U/L (14-59) Alkaline Phosphatase 170U/L (46-116) Total Protein 6.6g/dL (6.4-8.2) Albumin 3.0g/dL (3.4-5.0) Albumin/Globulin Ratio 0.8 (1.0-1.7) Review of Systems Review of Systems neck pain, shoulder pain, abd soreness some weakness would like to eat more Assessment and Plan Assessmemt and Plan Problems Medical Problems: (1) Choledocholithiasis Status: Acute (2) Elevated transaminase level Status: Acute (3) Hyperbilirubinemia Status: Acute Problems: Comment Review of Relevant I have reviewed the following items katie (where applicable) has been applied. Labs Laboratory Tests Test 12/29/16 04:15 12/30/16 05:30 White Blood Count 5.7x10^3/uL (4.0-11.0) Red Blood Count 4.61x10^6/uL (3.50-5.40) Hemoglobin 10.8g/dL (12.0-15.5) Hematocrit 34.3% (36.0-47.0) Mean Corpuscular Volume 74fL (79-100) Mean Corpuscular Hemoglobin 24pg (25-35) Mean Corpuscular Hemoglobin Concent 32g/dL (31-37) Red Cell Distribution Width 17.0% (11.5-14.5) Platelet Count 285x10^3/uL (140-400) Neutrophils (%) (Auto) 56% (31-73) Lymphocytes (%) (Auto) 36% (24-48) Monocytes (%) (Auto) 7% (0-9) Eosinophils (%) (Auto) 2% (0-3) Basophils (%) (Auto) 0% (0-3) Neutrophils # (Auto) 3.2x10^3uL (1.8-7.7) Lymphocytes # (Auto) 2.0x10^3/uL (1.0-4.8) Monocytes # (Auto) 0.4x10^3/uL (0.0-1.1) Eosinophils # (Auto) 0.1x10^3/uL (0.0-0.7) Basophils # (Auto) 0.0x10^3/uL (0.0-0.2) Sodium Level 142mmol/L (136-145) 142mmol/L (136-145) Potassium Level 3.7mmol/L (3.5-5.1) 4.3mmol/L (3.5-5.1) Chloride Level 108mmol/L (98-107) 106mmol/L (98-107) Carbon Dioxide Level 24mmol/L (21-32) 29mmol/L (21-32) Anion Gap 10 (6-14) 7 (6-14) Blood Urea Nitrogen 10mg/dL (7-20) 8mg/dL (7-20) Creatinine 0.7mg/dL (0.6-1.0) 0.8mg/dL (0.6-1.0) Estimated GFR (Cockcroft-Gault) 129.1 110.7 Glucose Level 103mg/dL (70-99) 108mg/dL (70-99) Calcium Level 8.5mg/dL (8.5-10.1) 9.3mg/dL (8.5-10.1) Iron Level 49ug/dL (50-170) Total Iron Binding Capacity 285ug/dL (250-450) Iron Saturation 17% (15-34) BUN/Creatinine Ratio 10 (6-20) Total Bilirubin 0.9mg/dL (0.2-1.0) Aspartate Amino Transf (AST/SGOT) 133U/L (15-37) Alanine Aminotransferase (ALT/SGPT) 169U/L (14-59) Alkaline Phosphatase 170U/L (46-116) Total Protein 6.6g/dL (6.4-8.2) Albumin 3.0g/dL (3.4-5.0) Albumin/Globulin Ratio 0.8 (1.0-1.7) Laboratory Tests Test 12/30/16 05:30 Sodium Level 142mmol/L (136-145) Potassium Level 4.3mmol/L (3.5-5.1) Chloride Level 106mmol/L (98-107) Carbon Dioxide Level 29mmol/L (21-32) Anion Gap 7 (6-14) Blood Urea Nitrogen 8mg/dL (7-20) Creatinine 0.8mg/dL (0.6-1.0) Estimated GFR (Cockcroft-Gault) 110.7 BUN/Creatinine Ratio 10 (6-20) Glucose Level 108mg/dL (70-99) Calcium Level 9.3mg/dL (8.5-10.1) Total Bilirubin 0.9mg/dL (0.2-1.0) Aspartate Amino Transf (AST/SGOT) 133U/L (15-37) Alanine Aminotransferase (ALT/SGPT) 169U/L (14-59) Alkaline Phosphatase 170U/L (46-116) Total Protein 6.6g/dL (6.4-8.2) Albumin 3.0g/dL (3.4-5.0) Albumin/Globulin Ratio 0.8 (1.0-1.7) Microbiology 12/28/16 Urine Culture - Final, Complete 12/28/16 Urine Culture Result 1 (GEE) - Final, Complete Medications Current Medications Fentanyl Citrate 50 mcg 50 mcg PRN Q15MIN PRN IV PAIN GREATER THAN 3/10 Last administered on 12/28/16 15:21; Start 12/28/16 at 13:15; Stop 12/29/16 at 13:14; Status DC Sodium Chloride (Iv Sodium Chloride 0.9% 1000ml Bag) 1,000 ml @ 1,000 mls/hr Q1H IV Last administered on 12/28/16 13:18; Start 12/28/16 at 13:06; Stop at 14:05; Status DC Ondansetron HCl (Zofran) 4 mg 1X ONCE IV Last administered on 12/28/16 13:22; Start 12/28/16 at 13:15; Stop 12/28/16 at 13:16; Status DC Famotidine (Pepcid) 20 mg 1X ONCE IVP Last administered on 12/28/16 13:21; Start 12/28/16 at 13:15; Stop 12/28/16 at 13:16; Status DC Ondansetron HCl (Zofran) 4 mg PRN Q8HRS PRN IV NAUSEA/VOMITING; Start 12/28/16 at 15:00; Stop 12/29/16 at 14:59; Status DC Fentanyl Citrate 50 mcg 50 mcg PRN Q2HR PRN IV PAIN Last administered on 09:15; Start 12/28/16 at 15:00; Stop 12/29/16 at 14:59; Status DC Sodium Chloride 1,000 ml @ 125 mls/hr Q8H IV Last administered on 12/29/16 09: 19; Start 12/28/16 at 15:00; Stop 12/29/16 at 14:59; Status DC Cefazolin Sodium/ Dextrose 50 ml @ 100 mls/hr 1X PREOP IV Last administered on 12/29/16 12:08; Start 12/29/16 at 10:45; Stop 12/30/16 at 18:00 Heparin Sodium (Porcine)/Sodium Chloride (Iv Sodium Chloride 0.9% 1000ml Bag) 1, 001 ml @ 1,001 mls/hr 1X PERIOP ONCE IRR Last administered on 12/29/16 12:11 ; Start 12/29/16 at 11:00; Stop 12/29/16 at 11:59; Status DC Bupivacaine HCl/ Epinephrine Bitart (Sensorcain-Mpf Epi 0.5%-1:[id number]) 30 ml STK -MED ONCE .ROUTE Last administered on 12/29/16 12:10; Start 12/29/16 at 11:14; Stop 12/29/16 at 11:15; Status DC Iohexol (Omnipaque 300 Mg/ml) 50 ml STK-MED ONCE .ROUTE Last administered on 12:10; Start 12/29/16 at 11:14; Stop 12/29/16 at 11:15; Status DC Cellulose 1 each STK-MED ONCE .ROUTE ; Start 12/29/16 at 11:15; Stop 12/29/16 at 11:16; Status DC Bisacodyl (Dulcolax Supp) 10 mg STK-MED ONCE .ROUTE Last administered on 12:10; Start 12/29/16 at 11:15; Stop 12/29/16 at 11:16; Status DC Ondansetron HCl (Zofran) 4 mg PRN Q6HRS PRN IV Nausea; Start 12/29/16 at 11:30; Stop 12/30/16 at 11:29; Status DC Fentanyl Citrate (Fentanyl 2ml Vial) 25 mcg PRN Q5MIN PRN IV MILD PAIN; Start 12/29/16 at 11:30; Stop 12/30/16 at 11:29; Status DC Fentanyl Citrate (Fentanyl 2ml Vial) 50 mcg PRN Q5MIN PRN IV MODERATE PAIN Last administered on 12/29/16 14:41; Start 12/29/16 at 11:30; Stop 12/30/16 at 11 :29; Status DC Morphine Sulfate 1 mg 1 mg PRN Q10MIN PRN IV SEVERE PAIN Last administered on 13:45; Start 12/29/16 at 11:30; Stop 12/30/16 at 11:29; Status DC Lactated Ringer's (Iv Lactated Ringers) 1,000 ml @ 0 mls/hr Q0M IV Last administered on 12/29/16 11:34; Start 12/29/16 at 11:18; Stop 12/29/16 at 23:17; Status DC Lidocaine HCl 2 ml 1X PRN PRN ID IV START; Start 12/29/16 at 11:30; Stop at 11:29; Status DC Hydromorphone HCl (Dilaudid) 0.5 mg PRN Q10MIN PRN IV SEV PAIN,Second choice; Start 12/29/16 at 11:30; Stop 12/30/16 at 11:29; Status DC Prochlorperazine Edisylate (Compazine) 5 mg PACU PRN PRN IV NAUSEA Last administered on 12/29/16 13:28; Start 12/29/16 at 11:30; Stop 12/30/16 at 11:29; Status DC Rocuronium Sherman (Zemuron) 50 mg STK-MED ONCE .ROUTE ; Start 12/29/16 at 11:23 ; Stop 12/29/16 at 11:24; Status DC Rocuronium Sherman (Zemuron) 50 mg STK-MED ONCE .ROUTE ; Start 12/29/16 at 11:23 ; Stop 12/29/16 at 11:24; Status DC Dexamethasone Sodium Phosphate 20 mg 20 mg STK-MED ONCE .ROUTE ; Start 12/29/16 at 11:24; Stop 12/29/16 at 11:25; Status DC Propofol (Diprivan) 20 ml @ As Directed STK-MED ONCE IV ; Start 12/29/16 at 11:24 ; Stop 12/29/16 at 11:25; Status DC Lidocaine HCl 100 mg STK-MED ONCE .ROUTE ; Start 12/29/16 at 11:24; Stop 12/29/16 at 11:25; Status DC Desflurane (Suprane) 90 ml STK-MED ONCE IH ; Start 12/29/16 at 11:24; Stop at 11:25; Status DC Succinylcholine Chloride (Anectine) 200 mg STK-MED ONCE .ROUTE ; Start 12/29/16 at 11:40; Stop 12/29/16 at 11:41; Status DC Fentanyl Citrate (Fentanyl 2ml Vial) 100 mcg STK-MED ONCE .ROUTE ; Start at 12:10; Stop 12/29/16 at 12:11; Status DC Glucagon (Glucagen) 1 mg STK-MED ONCE .ROUTE Last administered on 12/29/16 12: 25; Start 12/29/16 at 12:25; Stop 12/29/16 at 12:26; Status DC Dexamethasone Sodium Phosphate (Decadron) 20 mg STK-MED ONCE .ROUTE ; Start 12/29 at 12:26; Stop 12/29/16 at 12:27; Status DC Glycopyrrolate (Robinul) 1 mg STK-MED ONCE .ROUTE ; Start 12/29/16 at 12:44; Stop 12/29/16 at 12:45; Status DC Neostigmine Methylsulfate 5 mg STK-MED ONCE .ROUTE ; Start 12/29/16 at 12:44; Stop 12/29/16 at 12:45; Status DC Lidocaine HCl 100 mg STK-MED ONCE .ROUTE ; Start 12/29/16 at 12:50; Stop 12/29/16 at 12:51; Status DC Sodium Chloride 3 ml 3 ml QSHIFT PRN IV AFTER MEDS AND BLOOD DRAWS; Start at 13:00 Lactated Ringer's (Iv Lactated Ringers) 1,000 ml @ 100 mls/hr Q10H IV Last administered on 12/29/16 14:40; Start 12/29/16 at 12:49 Dextrose 12.5 gm PRN Q15MIN PRN IV SEE COMMENTS; Start 12/29/16 at 13:00 Acetaminophen/ Hydrocodone Bitart (Lortab 5/325) 1 tab PRN Q4HRS PRN PO MILD PAIN Last administered on 12/30/16 10:39; Start 12/29/16 at 13:00 Docusate Sodium (Colace) 100 mg BID PO Last administered on 12/29/16 20:38; Start 12/29/16 at 21:00 Ondansetron HCl 4 mg 4 mg PRN Q6HRS PRN IV NAUESA, 1ST CHOICE; Start 12/29/16 at 13:00 Propofol (Diprivan) 20 ml @ As Directed STK-MED ONCE IV ; Start 12/29/16 at 12:55 ; Stop 12/29/16 at 12:56; Status DC Sugammadex Sodium (Bridion) 200 mg STK-MED ONCE IVP ; Start 12/29/16 at 13:06; Stop 12/29/16 at 13:07; Status DC Fentanyl Citrate (Fentanyl 2ml Vial) 50 mcg PRN Q2HR PRN IV PAIN Last administered on 12/30/16t 12:24; Start 12/29/16 at 15:45 Throat Lozenges (Cepacol Sore Throat Lozenge) 1 rolan PRN Q2HRS PRN PO SORE THROAT; Start 12/30/16 at 11:30 Active Scripts Active Motrin Ib (Ibuprofen) 200 Mg Tablet 800 Mg PO TID PRN Otis 5-325 Tablet (Acetaminophen/Hydrocodone Bitart) 1 Each Tablet 1 Tab PO PRN Q6HRS PRN Vitals/I & O Vital Sign - Last 24 Hours 12/29/16 12/29/16 12/29/16 12/29/16 14:41 14:50 15:05 15:35 Temp 98.3 98.3 98.3 98.3 Pulse 59 73 56 Resp 20 18 18 18 B/P 123/68 140/86 123/75 Pulse Ox 99 99 100 100 O2 Delivery Nasal Cannula Nasal Cannula Nasal Cannula Nasal Cannula O2 Flow Rate 2.0 12/29/16 12/29/16 12/29/16 12/29/16 15:47 15:50 16:17 16:20 Temp 98.3 98.3 Pulse 76 58 Resp 14 18 18 B/P 137/88 133/71 Pulse Ox 100 100 O2 Delivery Nasal Cannula Nasal Cannula Nasal Cannula O2 Flow Rate 2.0 2.0 12/29/16 12/29/16 12/29/16 12/29/16 18:21 19:00 19:39 20:39 Temp 97.9 97.9 Pulse 51 Resp 16 18 B/P 135/82 Pulse Ox 98 O2 Delivery Room Air Nasal Cannula Room Air Room Air 12/29/16 12/29/16 12/30/16 12/30/16 23:00 23:07 01:29 03:00 Temp 98.0 98.0 98.0 98.0 Pulse 48 54 Resp 18 18 18 18 B/P 149/95 132/79 Pulse Ox 97 97 O2 Delivery Nasal Cannula Room Air Room Air 12/30/16 12/30/16 12/30/16 12/30/16 04:37 07:00 08:00 09:06 Temp 97.7 97.7 Pulse 66 Resp 18 18 16 B/P 136/81 Pulse Ox 97 O2 Delivery Room Air Room Air Room Air Room Air 12/30/16 12/30/16 12/30/16 12/30/16 09:36 10:39 11:00 11:39 Temp 97.3 97.3 Pulse 68 Resp 14 B/P 114/72 Pulse Ox 96 O2 Delivery Room Air Room Air Room Air Room Air 12/30/16 12:24 Resp 16 Pulse Ox 96 O2 Delivery Room Air Intake and Output 12/29/16 12/29/16 12/30/16 15:00 23:00 07:00 Intake Total 0 ml Output Total 210 ml 800 ml Balance -210 ml -800 ml 0 ml DIONICIO VELÁSQUEZ MD Dec 30, 2016 14:38
[2016-12-30 15:00] VITALS: BP 144/73
[2016-12-30 19:10] VITALS: BP 119/73
[2016-12-30 23:14] VITALS: BP 125/84
[2016-12-31] MEDS: FENTANYL PF 100 MCG/2 ML VIAL. IV PRN (01:10)
[2016-12-31] MEDS: IV RINGERS,LACTATED 1000ML 1,000 ML IV SCH (01:15)
[2016-12-31 03:41] VITALS: BP 110/46
[2016-12-31] MEDS: HYDROCODONE/APAP 5/325MG TABLET. PO PRN ×3 (04:51→13:29)
[2016-12-31 07:22] VITALS: BP 122/65
--- NOTE | 2016-12-31 08:44 | PDOC ---
SURGICAL PROGRESS NOTE Subjective epigastric incision pain tolerating diet would like to go home Vital Signs Vital Signs Date Time Temp Pulse Resp B/P Pulse Ox O2 Delivery O2 Flow Rate FiO2 12/31/16 07:22 97.7 61 18 122/65 98 Room Air 97.7 I&O Intake and Output 12/31/16 07:00 Intake Total 300 ml Balance 300 ml Intake Oral 300 ml # Voids 4 General: Alert, Oriented X3, Cooperative, No acute distress Abdomen: Soft, Other (incisional TTP, dressings dry ) Labs Laboratory Tests Test 12/30/16 05:30 Sodium Level 142mmol/L (136-145) Potassium Level 4.3mmol/L (3.5-5.1) Chloride Level 106mmol/L (98-107) Carbon Dioxide Level 29mmol/L (21-32) Anion Gap 7 (6-14) Blood Urea Nitrogen 8mg/dL (7-20) Creatinine 0.8mg/dL (0.6-1.0) Estimated GFR (Cockcroft-Gault) 110.7 BUN/Creatinine Ratio 10 (6-20) Glucose Level 108mg/dL (70-99) Calcium Level 9.3mg/dL (8.5-10.1) Total Bilirubin 0.9mg/dL (0.2-1.0) Aspartate Amino Transf (AST/SGOT) 133U/L (15-37) Alanine Aminotransferase (ALT/SGPT) 169U/L (14-59) Alkaline Phosphatase 170U/L (46-116) Total Protein 6.6g/dL (6.4-8.2) Albumin 3.0g/dL (3.4-5.0) Albumin/Globulin Ratio 0.8 (1.0-1.7) Problem List Problems Medical Problems: (1) Choledocholithiasis Status: Acute (2) Elevated transaminase level Status: Acute (3) Hyperbilirubinemia Status: Acute Assessment/Plan s/p lap cathi LFTS improved yesterday GI not planning ERCP ok to DC and FU in clinic next week Problems: YASHIRA NUNEZ APRN Dec 31, 2016 08:44
[2016-12-31] MEDS: DOCUSATE SODIUM 100 MG CAPSULE PO SCH (09:06)
[2016-12-31 11:07] VITALS: BP 133/72
[2016-12-31] MEDS ORDERED: HYDR-2762 PO (12:11)
[2016-12-31] MEDS ORDERED: DOCU-27 PO (12:11)
--- NOTE | 2016-12-31 12:14 | PDOC3 ---
Discharge Summary Visit Information Date of Admission: Dec 28, 2016 Date of Discharge: Dec 31, 2016 Admitting Diagnosis: abd pain Final Diagnosis choledocholithiasis transaminitis, hyperbili microcytosis with anemia, subclinical, diffuse pain after procedure, shoulder and neck pain, obesity, BMI 39.4 Problems Medical Problems: (1) Choledocholithiasis Status: Acute (2) Elevated transaminase level Status: Acute (3) Hyperbilirubinemia Status: Acute Brief Hospital Course Allergies Allergies Coded Allergies Type Severity Reaction Last Updated Verified No Known Drug Allergies 12/29/16 No Vital Signs Vital Signs Date Time Temp Pulse Resp B/P Pulse Ox O2 Delivery O2 Flow Rate FiO2 12/31/16 11:07 97.9 52 18 133/72 95 Room Air 97.9 Lab Results Laboratory Tests Test 12/30/16 05:30 Sodium Level 142mmol/L (136-145) Potassium Level 4.3mmol/L (3.5-5.1) Chloride Level 106mmol/L (98-107) Carbon Dioxide Level 29mmol/L (21-32) Anion Gap 7 (6-14) Blood Urea Nitrogen 8mg/dL (7-20) Creatinine 0.8mg/dL (0.6-1.0) Estimated GFR (Cockcroft-Gault) 110.7 BUN/Creatinine Ratio 10 (6-20) Glucose Level 108mg/dL (70-99) Calcium Level 9.3mg/dL (8.5-10.1) Total Bilirubin 0.9mg/dL (0.2-1.0) Aspartate Amino Transf (AST/SGOT) 133U/L (15-37) Alanine Aminotransferase (ALT/SGPT) 169U/L (14-59) Alkaline Phosphatase 170U/L (46-116) Total Protein 6.6g/dL (6.4-8.2) Albumin 3.0g/dL (3.4-5.0) Albumin/Globulin Ratio 0.8 (1.0-1.7) Brief Hospital Course Ms. Best is a 21 old w/ acute abd pain, transaminitis, no impacted stone on imaging to OR 12/29, some post-op pain, feels better, still some pain GI following, not likely ongoing stone. labs improved Discharge Information Condition at Discharge: Improved Follow Up: Weeks Disposition/Orders: D/C to Home Scheduled Docusate Sodium (Colace) 100 MG PO BID Scheduled PRN Hydrocodone Bit/Acetaminophen (Hydrocodone-Apap 7.5-325 ) 1 TAB PO Q4HRS PRN PRN PAIN Hydrocodone/Apap 5-325 ([place] 5-325 Tablet) 1 TAB PO PRN Q6HRS PRN PRN PAIN Ibuprofen (Motrin Ib) 800 MG PO TID PRN PRN PAIN Patient Instructions Patient Instructions time > 30 min no lifting 2 weeks, 20 lbs DIONICIO VELÁSQUEZ MD Dec 31, 2016 12:14
== END 2016-12-31 13:33 | disposition home or self-care (01) | DRG 418 ==
LOC: ER 11:48 → 4 NORTH 14:37
PROVIDERS: ADMIT Internal Medicine; ATTEND Internal Medicine
PROC: BF101ZZ Fluoroscopy of Bile Ducts using Low Osmolar Contrast (ICD-10-PCS; 2016-12-29)
PROC: 0FT44ZZ Resection of Gallbladder, Percutaneous Endoscopic Approach (ICD-10-PCS; principal; 2016-12-29 11:30)
DX: K80.10 Calculus of gallbladder with chronic cholecystitis without obstruction (principal); K80.62 Calculus of gallbladder and bile duct with acute cholecystitis without obstruction; D64.9 Anemia, unspecified; E66.9 Obesity, unspecified; M54.5 Low back pain; Z68.39 Body mass index [BMI] 39.0-39.9, adult
CPT/HCPCS: 36415; 74300; 76705; 80048; 80053; 81001; 81025; 83540; 83550; 83690; 85027; 87086; 88304; 96361; 96374; 96375; 96376; C1782; J0330; J0690; J0780; J1100; J1610; J2270; J2405; J2704; J2710; J3010; J3490; J7030; J7120; Q9967; S0028; 99285-25

== ENCOUNTER 2017-03-23 13:55 | Emergency (ER) | payer OTHER ==
[~2017-03-23] VITALS: Ht 167.6 cm; Wt 106.6 kg
[~2017-03-23 13:55] MED LIST changes: +DOCU-27 PO; +HYDR-2762 PO
[2017-03-23 14:05] VITALS: BP 126/69
[2017-03-23] MEDS ORDERED: OXYMETAZOLINE 0.05% NASAL SPRAY 30ML BOTTLE. NS ONE (14:15)
--- NOTE | 2017-03-23 14:41 | PHYS DOC ---
Past Medical History Past Medical History: No Pertinent History Past Surgical History: Cholecystectomy Alcohol Use: None Drug Use: None Adult General Chief Complaint Chief Complaint: NOSEBLEED HPI HPI Patient is a 22 year old female with no significant medical history who presents with right nose bleed that began an hour prior to coming to the ED. Patient denies any trauma. Denies any history of hypertension. She states she's had a cold in the last couple days. Review of Systems Review of Systems Constitutional: Denies fever or chills [] Eyes: Denies change in visual acuity, redness, or eye pain [] HENT: Right nosebleed Respiratory: Denies cough or shortness of breath [] Cardiovascular: No additional information not addressed in HPI [] GI: Denies abdominal pain, nausea, vomiting, bloody stools or diarrhea [] : Denies dysuria or hematuria [] Musculoskeletal: Denies back pain or joint pain [] Integument: Denies rash or skin lesions [] Neurologic: Denies headache, focal weakness or sensory changes [] Endocrine: Denies polyuria or polydipsia [] Current Medications Current Medications Current Medications Medications (Trade) Dose Ordered Sig/Shelly Start Time Stop Time Status Last Admin Dose Admin Oxymetazoline HCl (Afrin) 2 spray 1X ONCE 03/23/17 14:15 03/23/17 14:16 DC 03/23/17 14:16 2 SPRAY Allergies Allergies Allergies Coded Allergies Type Severity Reaction Last Updated Verified No Known Drug Allergies 12/29/16 No Physical Exam Physical Exam Constitutional: Well developed, well nourished, no acute distress, non-toxic appearance. [] HENT: Normocephalic, atraumatic, bilateral external ears normal, oropharynx moist, no oral exudates, No active bleeding noted in bilateral nasal cavities. Bilateral nasal tenderness are erythematous. Eyes: PERRLA, EOMI, conjunctiva normal, no discharge. [] Neck: Normal range of motion, no tenderness, supple, no stridor. [] Cardiovascular:Heart rate regular rhythm, no murmur [] Lungs & Thorax: Bilateral breath sounds clear to auscultation [] Abdomen: Bowel sounds normal, soft, no tenderness, no masses, no pulsatile masses. [] Skin: Warm, dry, no erythema, no rash. [] Back: No tenderness, no CVA tenderness. [] Extremities: No tenderness, no cyanosis, no clubbing, ROM intact, no edema. [] Neurologic: Alert and oriented X 3, normal motor function, normal sensory function, no focal deficits noted. [] Psychologic: Affect normal, judgement normal, mood normal. [] Current Patient Data Vital Signs Vital Signs Date Time Temp Pulse Resp B/P (MAP) Pulse Ox O2 Delivery O2 Flow Rate FiO2 03/23/17 14:05 98.1 101 18 100 Room Air 98.1 EKG EKG [] Radiology/Procedures Radiology/Procedures [] Course & Med Decision Making Course & Med Decision Making Pertinent Labs and Imaging studies reviewed. (See chart for details) Patient is in the ED with complaints of right nosebleed that began an hour prior to coming to the ED. She does not have active nose bleeding in the ED. Afrin was used in her right nose. Encouraged not to blow her nose. Instructed to follow-up with her own PCP in 1-2 weeks. Her vitals are stable. Provided return precautions and discharged in stable condition. Dragon Disclaimer Dragon Disclaimer This electronic medical record was generated, in whole or in part, using a voice recognition dictation system. Departure Departure Impression: Primary Impression: Epistaxis Additional Impression: Upper respiratory infection Disposition: 01 HOME, SELF-CARE Condition: STABLE Referrals: AGUSTÍN NICKERSON MD (PCP) Follow-up with your doctor in 1-2 weeks Patient Instructions: Nosebleed, [id number], Upper Respiratory Infection, Adult Additional Instructions: You were seen for right nose bleeding. We put Afrin in your nose. You do not have any active bleeding right now. Come back to the ED at any point you are not able to stop another episode of nose bleeding. Follow up with your doctor in one week. Do not blow your nose. Problem Qualifiers Additional Impression: Upper respiratory infection URI type: unspecified viral URI Qualified Codes: J06.9 - Acute upper respiratory infection, unspecified; B97.89 - Other viral agents as the cause of diseases classified elsewhere FREDDY GRIFFIN APRN Mar 23, 2017 14:41
== END 2017-03-23 14:50 | disposition home or self-care (01) ==
LOC: ER 13:55
DX: R04.0 Epistaxis (principal); J06.9 Acute upper respiratory infection, unspecified; Z90.49 Acquired absence of other specified parts of digestive tract
CPT/HCPCS: 99282

== ENCOUNTER 2017-06-02 11:14 | Emergency (ER) | payer OTHER ==
[~2017-06-02 11:14] MED LIST changes: +DOCU-109 PO; -DOCU-27 PO
--- NOTE | 2017-06-02 12:17 | PHYS DOC ---
Past Medical History Past Medical History: No Pertinent History Past Surgical History: Cholecystectomy Alcohol Use: None Drug Use: None Adult General Chief Complaint Chief Complaint: VAGINAL BLEEDING HPI HPI 22-year-old presenting to the emergency department today with abdominal pain and vaginal bleeding intermittently. She reports being approximately 16 weeks by last menstrual period and confirmed by ultrasound. She reports having an intrauterine . Her bleeding started today around an hour and a half ago. She currently does not have any pain. She did have intermittent pain over the past 3 or 4 days that is sharp mild intermittent nonradiating and without alleviating factors. She denies any recent trauma or falls. Review of systems is negative for fevers chills cough nausea vomiting. All other review of systems is negative unless otherwise noted in history of present illness. ED course: 22-year-old female presenting to the emergency department today with vaginal bleeding in the second trimester . Vital signs show the patient to be afebrile with a normal heart rate. Pertinent physical examination findings show soft nontender gravid abdomen with the fundus about 4-5 cm below the umbilicus. Blood work obtained along with ultrasound and urinalysis. Ultrasound unremarkable. Urinalysis shows bacteria in the urine for which she was given Keflex. Otherwise unremarkable workup. 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 They were to return if their symptoms worsened or if they were concerned for any reason. [id number] discharge instructions and return precautions were given. Patient's questions were answered to their satisfaction. Patient is comfortable plan. Review of Systems Review of Systems SEE ABOVE. Allergies Allergies Allergies Coded Allergies Type Severity Reaction Last Updated Verified No Known Drug Allergies 12/29/16 No Physical Exam Physical Exam SEE ABOVE Constitutional: Well developed, well nourished, no acute distress, non-toxic appearance. [] HENT: Normocephalic, atraumatic, bilateral external ears normal, oropharynx moist, no oral exudates, nose normal. [] Eyes: PERRLA, EOMI, conjunctiva normal, no discharge. [] Neck: Normal range of motion, no tenderness, supple, no stridor. [] Cardiovascular:Heart rate regular rhythm, no murmur [] Lungs & Thorax: Bilateral breath sounds clear to auscultation [] Abdomen: SEE ABOVE Skin: Warm, dry, no erythema, no rash. [] Back: No tenderness, no CVA tenderness. [] Extremities: No tenderness, no cyanosis, no clubbing, ROM intact, no edema. [] Neurologic: Alert and oriented X 3, normal motor function, normal sensory function, no focal deficits noted. [] Psychologic: Affect normal, judgement normal, mood normal. [] Current Patient Data Vital Signs Vital Signs Date Time Temp Pulse Resp B/P (MAP) Pulse Ox O2 Delivery O2 Flow Rate FiO2 06/02/17 11:38 98.0 78 14 111/70 (84) 99 Room Air 98.0 Lab Values Laboratory Tests Test 06/02/17 10:40 06/02/17 11:29 06/02/17 12:17 POC Urine HCG, Qualitative Hcg positive (Negative) Urine Collection Type Unknown Urine Color Christine Urine Clarity Clear Urine pH 6.5 Urine Specific [place] >=1.030 Urine Protein 30 mg/dL (NEG-TRACE) Urine Glucose (UA) Negative mg/dL (NEG) Urine Ketones (Stick) >=80 mg/dL (NEG) Urine Blood Trace (NEG) Urine Nitrite Negative (NEG) Urine Bilirubin Small (NEG) Urine Urobilinogen Dipstick 1.0 mg/dL (0.2 mg/dL) Urine Leukocyte Esterase Small (NEG) Urine RBC 0 /HPF (0-2) Urine WBC 5-10 /HPF (0-4) Urine Squamous Epithelial Cells Mod /LPF Urine Bacteria Many /HPF (0-FEW) Urine Mucus Mod /LPF White Blood Count 5.9 x10^3/uL (4.0-11.0) Red Blood Count 4.19 x10^6/uL (3.50-5.40) Hemoglobin 11.3 g/dL (12.0-15.5) L Hematocrit 33.3 % (36.0-47.0) L Mean Corpuscular Volume 79 fL (79-100) Mean Corpuscular Hemoglobin 27 pg (25-35) Mean Corpuscular Hemoglobin Concent 34 g/dL (31-37) Red Cell Distribution Width 18.4 % (11.5-14.5) H Platelet Count 219 x10^3/uL (140-400) Neutrophils (%) (Auto) 68 % (31-73) Lymphocytes (%) (Auto) 26 % (24-48) Monocytes (%) (Auto) 6 % (0-9) Eosinophils (%) (Auto) 0 % (0-3) Basophils (%) (Auto) 0 % (0-3) Neutrophils # (Auto) 4.0 x10^3uL (1.8-7.7) Lymphocytes # (Auto) 1.6 x10^3/uL (1.0-4.8) Monocytes # (Auto) 0.3 x10^3/uL (0.0-1.1) Eosinophils # (Auto) 0.0 x10^3/uL (0.0-0.7) Basophils # (Auto) 0.0 x10^3/uL (0.0-0.2) Sodium Level 140 mmol/L (136-145) Potassium Level 3.6 mmol/L (3.5-5.1) Chloride Level 104 mmol/L (98-107) Carbon Dioxide Level 24 mmol/L (21-32) Anion Gap 12 (6-14) Blood Urea Nitrogen 4 mg/dL (7-20) L Creatinine 0.6 mg/dL (0.6-1.0) Estimated GFR (Cockcroft-Gault) 152.7 Glucose Level 75 mg/dL (70-99) Calcium Level 9.1 mg/dL (8.5-10.1) Total Bilirubin 0.2 mg/dL (0.2-1.0) Direct Bilirubin 0.1 mg/dL (0.0-0.2) Aspartate Amino Transferase (AST) 11 U/L (15-37) L Alanine Aminotransferase (ALT) 14 U/L (14-59) Alkaline Phosphatase 71 U/L (46-116) Total Protein 6.7 g/dL (6.4-8.2) Albumin 2.6 g/dL (3.4-5.0) L Lipase 60 U/L (73-393) L Laboratory Tests 06/02/17 12:17 Laboratory Tests 06/02/17 12:17 EKG EKG [] Radiology/Procedures Radiology/Procedures [] Course & Med Decision Making Course & Med Decision Making Pertinent Labs and Imaging studies reviewed. (See chart for details) [] Dragon Disclaimer Dragon Disclaimer This electronic medical record was generated, in whole or in part, using a voice recognition dictation system. Departure Departure Impression: Primary Impression: Vaginal bleeding during , antepartum Disposition: HOME, SELF-CARE Condition: STABLE Referrals: AGUSTÍN NICKERSON MD (PCP) Patient Instructions: Vaginal Bleeding During , Second Trimester Additional Instructions: Thank you for allowing us to participate in your care today. Followup with your primary care physician in 3 days if your symptoms do not improve. Call your Primary Doctor tomorrow and inform them of your visit today. If you do not have a primary care provider you can ask for a list of our primary care providers. Return to the emergency department you have any new or concerning findings. This should be evaluated by the primary care physician and any necessary consulting services for continued management within a few days after discharge. Return to emergency room if you have any new or concerning symptoms including but not limited to fever, chills, nausea, vomiting, intractable pain, any new rashes, chest pain, shortness of air, uncontrolled bleeding, difficulty breathing, and/or vision loss. Scripts Cephalexin (KEFLEX) 250 Mg Capsule 1 CAP PO QID, #28 CAP Prov: SHAWNEE AVILA MD 06/02/17 SHAWNEE AVILA MD Jun 02, 2017 12:17
[2017-06-02 12:22] LABS: BILIRUBIN,URINE SMALL (NEG); GLUCOSE,URINE NEGATIVE (NEG); NITRITE,URINE NEGATIVE (NEG); PH,URINE 6.5; PROTEIN,URINE 30 mg/dL (NEG-TRACE)
[2017-06-02 12:29] LABS: BASO % 0 % (0-3); EOS % 0 % (0-3); HEMATOCRIT 33.3 % (36.0-47.0); HEMOGLOBIN 11.3 g/dL (12.0-15.5); LYMPH # 1.6 x10^3/uL (1.0-4.8); LYMPH % 26 % (24-48); MEAN CORPUSCULAR HEMOGLOBIN 27 pg (25-35); MEAN CORPUSCULAR HGB CONC 34 g/dL (31-37); MEAN CORPUSCULAR VOLUME 79 fL (79-100); MONO % 6 % (0-9); NEUT % 68 % (31-73); PLATELET COUNT 219 x10^3/uL (140-400); RED BLOOD COUNT 4.19 x10^6/uL (3.50-5.40); RED CELL DISTRIBUTION WIDTH 18.4 % (11.5-14.5); WHITE BLOOD COUNT 5.9 x10^3/uL (4.0-11.0)
[2017-06-02 12:35] LABS: BACTERIA,URINE MANY /HPF (0-FEW); RBC,URINE 0 /HPF (0-2); SQUAMOUS EPITHELIAL CELL,UR MOD /LPF
[2017-06-02 12:38] LABS: CALCIUM 9.1 mg/dL (8.5-10.1); CREATININE 0.6 mg/dL (0.6-1.0); GFR 152.7; POTASSIUM 3.6 mmol/L (3.5-5.1)
[2017-06-02 12:44] LABS: ALBUMIN 2.6 g/dL (3.4-5.0); DIRECT BILIRUBIN 0.1 mg/dL (0.0-0.2); TOTAL BILIRUBIN 0.2 mg/dL (0.2-1.0); TOTAL PROTEIN 6.7 g/dL (6.4-8.2)
--- NOTE | 2017-06-02 13:17 | RAD ---
Indication vaginal spotting. An early obstetrical ultrasound examination was performed. No prior imaging is available associated with this . The maternal cervix measures approximately 3 cm. There is a twin . The appears to be dichorionic and diamniotic but this is not certain. Baby B has a heart rate of 169. The biparietal diameters of each of the pregnancies is approximately 3.3 cm,. Head circumferences of each is approximately 12.9 and the abdominal circumference femoral length of each is approximately 10.3 and 2.1 respectively. These numbers correspond to gestational age of approximately 16 weeks 2 days. Baby A has a heart rate of 141. No complication is seen. survey was not performed. IMPRESSION: Viable twin of approximately 16 weeks 2 days gestation. Cervical length approximately 3 cm
[2017-06-02] MEDS ORDERED: CEPH-263 PO (13:31)
[2017-06-02 13:45] VITALS: BP 101/62
== END 2017-06-02 13:52 | disposition home or self-care (01) ==
LOC: ER 11:14
DX: O20.9 Hemorrhage in early pregnancy, unspecified (principal); O26.892 Other specified pregnancy related conditions, second trimester; R10.9 Unspecified abdominal pain; Z3A.16 16 weeks gestation of pregnancy; Z90.49 Acquired absence of other specified parts of digestive tract
CPT/HCPCS: 36415; 76810; 80048; 80076; 81001; 81025; 83690; 85027; 86900; 86901; 87086; 99285-25

== ENCOUNTER 2017-08-14 08:15 | Observation (INO) | payer OTHER ==
[~2017-08-14 08:15] MED LIST changes: +CEPH-263 PO
== END 2017-08-14 11:55 | disposition home or self-care (01) ==
LOC: 3 SO LND 08:15
PROVIDERS: ADMIT Specialist; ATTEND Specialist
DX: O26.852 Spotting complicating pregnancy, second trimester (principal); O30.002 Twin pregnancy, unspecified number of placenta and unspecified number of amniotic sacs, second trimester; Z3A.26 26 weeks gestation of pregnancy
CPT/HCPCS: G0378; G0379

== ENCOUNTER 2017-09-11 09:24 | Observation (INO) | payer OTHER ==
[2017-09-11] MEDS ORDERED: PANTOPRAZOLE 40 MG TABLET.DR. PO ONE (11:15)
== END 2017-09-11 11:42 | disposition home or self-care (01) ==
LOC: 3 SO LND 09:24
PROVIDERS: ADMIT Specialist; ATTEND Specialist
DX: O26.893 Other specified pregnancy related conditions, third trimester (principal); R10.9 Unspecified abdominal pain; Z3A.30 30 weeks gestation of pregnancy
CPT/HCPCS: G0378; G0379

== ENCOUNTER 2019-01-14 10:45 | Emergency (ER) | payer OTHER ==
[~2019-01-14] VITALS: Ht 167.6 cm; Wt 99.8 kg
[~2019-01-14 10:45] MED LIST changes: -HYDR-2762 PO; +HYDR-2765 PO; +HYDR-3164 PO; -HYDR-971 PO; -IBUP200T43 PO; +IBUP200T44 PO
[2019-01-14] MEDS ORDERED: SUMAtriptan SUCCINATE 25 MG TABLET PO ONE (11:30)
[2019-01-14] MEDS ORDERED: predniSONE 20 MG TABLET PO ONE (11:30)
[2019-01-14] MEDS ORDERED: ONDANSETRON ODT 4 MG TAB.RAPDIS. PO ONE (11:30)
[2019-01-14] MEDS ORDERED: PROM25TA10 PO (11:54)
[2019-01-14] MEDS ORDERED: SUMA50TA3 PO (11:54)
--- NOTE | 2019-01-14 11:55 | PHYS DOC ---
Past Medical History Past Medical History: No Pertinent History, Migraines Past Surgical History: Cholecystectomy, Alcohol Use: Occasionally Drug Use: None Adult General Chief Complaint Chief Complaint: HEADACHE HPI HPI Patient is a 23 year old female with history of migraine headaches who presents to the ED today complaining of 8-1/2 out of 10 throbbing left frontal migraine headache that began 4 days ago. Patient states the headache is intermittent. Patient is also complaining of photosensitivity and nausea. She states she took a Tylenol yesterday with with slight relief. She is also stating noise exacerbates the headache as well as light. Patient denies any chance she is . Review of Systems Review of Systems Constitutional: Denies fever or chills [] Eyes: Denies change in visual acuity, redness, or eye pain [] HENT: Denies nasal congestion or sore throat [] Respiratory: Denies cough or shortness of breath [] Cardiovascular: No additional information not addressed in HPI [] GI: Reports nausea. Denies abdominal pain, nausea, bloody stools or diarrhea [] : Denies dysuria or hematuria [] Musculoskeletal: Denies back pain or joint pain [] Integument: Denies rash or skin lesions [] Neurologic: Reports migraine headache, denies focal weakness or sensory changes [] All other systems were reviewed and found to be within normal limits, except as documented in this note. Current Medications Current Medications Current Medications Medications (Trade) Dose Ordered Sig/Shelly Start Time Stop Time Status Last Admin Dose Admin Ondansetron HCl (Zofran Odt) 4 mg 1X ONCE 01/14/19 11:30 01/14/19 11:31 DC 01/14/19 11:37 4 MG Prednisone (Prednisone) 60 mg 1X ONCE 01/14/19 11:30 01/14/19 11:31 DC 01/14/19 11:36 60 MG Sumatriptan Succinate (Imitrex) 25 mg 1X ONCE 01/14/19 11:30 01/14/19 11:31 DC 01/14/19 11:37 25 MG Allergies Allergies Allergies Coded Allergies Type Severity Reaction Last Updated Verified No Known Drug Allergies 12/29/16 No Physical Exam Physical Exam Constitutional: Well developed, well nourished, no acute distress, non-toxic appearance. [] HENT: Normocephalic, atraumatic, bilateral external ears normal, oropharynx moist, no oral exudates, nose normal. [] Eyes: PERRLA, EOMI, conjunctiva normal, no discharge. [] Neck: Normal range of motion, no tenderness, supple, no stridor. [] Cardiovascular:Heart rate regular rhythm, no murmur [] Lungs & Thorax: Bilateral breath sounds clear to auscultation [] Abdomen: Bowel sounds normal, soft, no tenderness, no masses, no pulsatile masses. [] Skin: Warm, dry, no erythema, no rash. [] Back: No tenderness, no CVA tenderness. [] Extremities: No tenderness, no cyanosis, no clubbing, ROM intact, no edema. [] Neurologic: Alert and oriented X 3, normal motor function, normal sensory function, no focal deficits noted. Cranial nerves II through XII intact Psychologic: Affect normal, judgement normal, mood normal. [] Current Patient Data Vital Signs Vital Signs Date Time Temp Pulse Resp B/P (MAP) Pulse Ox O2 Delivery O2 Flow Rate FiO2 01/14/19 11:38 82 16 100 01/14/19 10:56 98.4 121/73 (89) Room Air 98.4 EKG EKG [] Radiology/Procedures Radiology/Procedures [] Course & Med Decision Making Course & Med Decision Making Pertinent Labs and Imaging studies reviewed. (See chart for details) This is a 23-year-old female patient presenting to the ED today with a migraine headache, patient has history of the same. Given Imitrex in the ED and discharged with the same. Also discharged with Phenergan as needed for nausea vomiting. Follow-up with PCP in 1-2 weeks. Dragon Disclaimer Dragon Disclaimer This electronic medical record was generated, in whole or in part, using a voice recognition dictation system. Departure Departure Impression: Primary Impression: Headache, migraine Disposition: 01 HOME, SELF-CARE Condition: STABLE Referrals: NO PCP (PCP) Follow-up with your own doctor in 1-2 weeks Patient Instructions: Migraine Headache Additional Instructions: You were seen in the emergency room for headache which is consistent with a migraine. Take the prescribed medication as ordered. Follow-up with your own doctor in 1-2 weeks. Try to rest, apply ice to your head, avoid noise as well as electronic devices today. Also consider taking Benadryl as soon as you get home. Scripts Promethazine Hcl (PROMETHAZINE HCL) 25 Mg Tablet 1 TAB PO PRN Q6HRS, #20 TAB Prov: FREDDY GRIFFIN APRN 01/14/19 Sumatriptan Succinate (IMITREX) 50 Mg Tablet 1 TAB PO UD, #9 TAB 1 Refill Prov: FREDDY GRIFFIN APRN 01/14/19 Problem Qualifiers Primary Impression: Headache, migraine Migraine type: without aura Status migrainosus presence: without status migrainosus Intractability: not intractable Qualified Codes: G43.009 - Migraine without aura, not intractable, without status migrainosus FREDDY GRIFFIN APRN Jan 14, 2019 11:55
[2019-01-14 12:06] VITALS: BP 125/83
== END 2019-01-14 12:06 | disposition home or self-care (01) ==
LOC: ER 10:45
DX: G43.009 Migraine without aura, not intractable, without status migrainosus (principal)
CPT/HCPCS: 99284; J7512; Q0162

== ENCOUNTER 2021-04-18 12:05 | Emergency (ER) | payer OTHER ==
[~2021-04-18] VITALS: Ht 170.2 cm; Wt 93.0 kg
[~2021-04-18 12:05] MED LIST changes: +PROM25TA10 PO; +SUMA50TA3 PO
[2021-04-18 12:35] LABS: BILIRUBIN,URINE NEGATIVE (NEG); CLARITY,URINE CLEAR; COLOR,URINE YELLOW; NITRITE,URINE NEGATIVE (NEG); PH,URINE 6.5 (<5.0-8.0); PROTEIN,URINE NEGATIVE (NEG-TRACE)
--- NOTE | 2021-04-18 12:41 | PHYS DOC ---
Past Medical History Past Medical History: No Pertinent History, Migraines Past Surgical History: Cholecystectomy, Smoking Status: Never Smoker Alcohol Use: Occasionally Drug Use: None General Adult EDM: Chief Complaint: ABDOMINAL PAIN HPI: HPI: Patient is a 26 year old female who presented to ER for evaluation of lower abdominal pain, cramping in nature. Patient is not sure if she is . Patient denies any vaginal bleeding or discharge. Denies any cough or fever. Patient said her symptoms have been going on for about 2 weeks. Patient denies any chest pain, no trouble breathing. Review of Systems: Review of Systems: Constitutional: Denies fever or chills. [] Eyes: Denies change in visual acuity. [] HENT: Denies nasal congestion or sore throat. [] Respiratory: Denies cough or shortness of breath. [] Cardiovascular: Denies chest pain or edema. [] GI: Positive for lower abdominal pain, no nausea vomiting, no diarrhea. : Denies dysuria. [] Musculoskeletal: Denies back pain or joint pain. [] Integument: Denies rash. [] Neurologic: Denies headache, focal weakness or sensory changes. [] Endocrine: Denies polyuria or polydipsia. [] Lymphatic: Denies swollen glands. [] Psychiatric: Denies depression or anxiety. [] Heart Score: C/O Chest Pain: N/A Risk Factors: Risk Factors: DM, Current or recent (<one month) smoker, HTN, HLP, family history of CAD, obesity. Risk Scores: Score 0 - 3: 2.5% MACE over next 6 weeks - Discharge Home Score 4 - 6: 20.3% MACE over next 6 weeks - Admit for Clinical Observation Score 7 - 10: 72.7% MACE over next 6 weeks - Early Invasive Strategies Current Medications: Current Medications Medications (Trade) Dose Ordered Sig/Shelly Start Time Stop Time Status Last Admin Dose Admin Sodium Chloride 1,000 ml @ 1,000 mls/hr 1X ONCE 04/18/21 12:45 04/18/21 13:44 Allergies: Allergies: Allergies Coded Allergies Type Severity Reaction Last Updated Verified No Known Drug Allergies 12/29/16 No Physical Exam: PE: Constitutional: Well developed, well nourished, no acute distress, non-toxic appearance. [] HENT: Normocephalic, atraumatic, bilateral external ears normal, oropharynx moist, no oral exudates, nose normal. [] Eyes: PERRLA, EOMI, conjunctiva normal, no discharge. [] Neck: Normal range of motion, no tenderness, supple, no stridor. [] Cardiovascular:Heart rate regular rhythm, no murmur [] Lungs & Thorax: Bilateral breath sounds clear to auscultation [] Abdomen: Bowel sounds normal, soft, there is suprapubic tenderness to palpation, no masses, no pulsatile masses. [] Skin: Warm, dry, no erythema, no rash. [] Back: No tenderness, no CVA tenderness. [] Extremities: No tenderness, no cyanosis, no clubbing, ROM intact, no edema. [] Neurologic: Alert and oriented X 3, normal motor function, normal sensory function, no focal deficits noted. [] Psychologic: Affect normal, judgement normal, mood normal. [] Current Patient Data: Labs: Laboratory Tests Test 04/18/21 12:05 04/18/21 12:28 04/18/21 13:48 04/18/21 15:05 Urine Collection Type Unknown Urine Color Yellow Urine Clarity Clear Urine pH 6.5 Urine Specific [place] 1.025 Urine Protein Negative mg/dL Urine Glucose (UA) Negative mg/dL Urine Ketones (Stick) Negative mg/dL Urine Blood Negative Urine Nitrite Negative Urine Bilirubin Negative Urine Urobilinogen Dipstick 1.0 mg/dL Urine Leukocyte Esterase Trace Urine RBC Occ /HPF Urine WBC Occ /HPF Urine Squamous Epithelial Cells Mod /LPF Urine Bacteria Few /HPF Urine Mucus Slight /LPF Bedside Urine HCG, Qualitative Hcg positive Maternal Serum HCG Beta Subunit 536 mIU/mL Sodium Level 140 mmol/L Potassium Level 4.7 mmol/L Chloride Level 106 mmol/L Carbon Dioxide Level 25 mmol/L Anion Gap 9 Blood Urea Nitrogen 14 mg/dL Creatinine 0.7 mg/dL Estimated GFR (Cockcroft-Gault) 123.4 BUN/Creatinine Ratio 20 Glucose Level 79 mg/dL Calcium Level 9.3 mg/dL Magnesium Level 2.1 mg/dL Total Bilirubin 0.4 mg/dL Aspartate Amino Transf (AST/SGOT) 22 U/L Alanine Aminotransferase (ALT/SGPT) 19 U/L Alkaline Phosphatase 88 U/L Total Protein 7.8 g/dL Albumin 3.7 g/dL Albumin/Globulin Ratio 0.9 White Blood Count 7.1 x10^3/uL Red Blood Count 4.68 x10^6/uL Hemoglobin 13.5 g/dL Hematocrit 40.1 % Mean Corpuscular Volume 86 fL Mean Corpuscular Hemoglobin 29 pg Mean Corpuscular Hemoglobin Concent 34 g/dL Red Cell Distribution Width 14.8 % Platelet Count 276 x10^3/uL Neutrophils (%) (Auto) 65 % Lymphocytes (%) (Auto) 27 % Monocytes (%) (Auto) 7 % Eosinophils (%) (Auto) 1 % Basophils (%) (Auto) 0 % Neutrophils # (Auto) 4.6 x10^3/uL Lymphocytes # (Auto) 1.9 x10^3/uL Monocytes # (Auto) 0.5 x10^3/uL Eosinophils # (Auto) 0.1 x10^3/uL Basophils # (Auto) 0.0 x10^3/uL Current Medications Medications (Trade) Dose Ordered Sig/Shelly Route PRN Reason Start Time Stop Time Status Last Admin Dose Admin Sodium Chloride 1,000 ml @ 1,000 mls/hr 1X ONCE IV 04/18/21 12:45 04/18/21 13:44 DC 04/18/21 15:08 Laboratory Tests Test 04/18/21 12:28 POC Urine HCG, Qualitative Hcg positive (Negative) Vital Signs: Vital Signs Date Time Temp Pulse Resp B/P (MAP) Pulse Ox O2 Delivery O2 Flow Rate FiO2 04/18/21 12:29 98.8 83 12 147/75 (99) 100 Room Air 98.8 EKG: EKG: [] Radiology/Procedures: Radiology/Procedures: [][facility] [address] [place] [address] IMAGING REPORT Signed PATIENT: ROCÍO KAUR ACCOUNT: [id number] : 1995 LOCATION: ER AGE: 26 SEX: F EXAM STATUS: REG ER ORD. PHYSICIAN: ESTELITA BAIRES DO REASON: pelvic pain, HCG 536 PROCEDURE: OB <14 WKS W/TV INDICATION: Reason: pelvic pain, HCG 536 / Spl. Instructions: / History: COMPARISON: May 2017 TECHNIQUE: Grayscale and color ultrasound images uterus and adnexa. Transabdominal and transvaginal images obtained. Transvaginal images were needed to better visualize structures that were limited on transabdominal imaging. FINDINGS: Uterus: 96 x 52 x 47 mm. No intrauterine gestational sac is seen at this time. Right Ovary: 34 x 25 x 23 mm. Left Ovary: 30 x 25 x 16 mm. Vascular flow identified to bilateral ovaries. Small free fluid. IMPRESSION: * No intrauterine gestational sac is seen. * Vascular flow seen to the ovaries with small free fluid. Electronically signed by: Parish Dawson MD (04/18/2021 3:38 PM) [id number] DICTATED and SIGNED BY: PARISH DAWSON MD DATE: 04/18/21 [id number] 0 Course & Med Decision Making: Course & Med Decision Making Pertinent Labs and Imaging studies reviewed. (See chart for details) Patient is a 26-year-old female who presents to ER due to lower abdominal cramping for 2 weeks. Patient was found to be , her last menstrual period was on March 19, 2021. Her hCG level was 526 consistent with around 3 to 4 weeks . Ultrasound did not show an IUP. Patient was in stable condition, she will be discharged home, she was recommended to follow-up with her HOME CARE ADMINISTRATOR doctor or return here in 48 hours to have her hCG level rechecked to make sure she does not have a ectopic . Patient was amenable to plan of care Pipo Disclaimer: Pipo Disclaimer: This electronic medical record was generated, in whole or in part, using a voice recognition dictation system. Departure Departure Impression: Primary Impression: Abdominal pain during in first trimester Disposition: 01 HOME / SELF CARE / HOMELESS Condition: STABLE Referrals: NO PCP (PCP) Please follow up with your HOME CARE ADMINISTRATOR DOCTOR OR come back here in 48 hours to have your HCG level rechecked. Patient Instructions: ABCs of Additional Instructions: Thank you for visiting our Emergency Department. We appreciate you trusting us with your care. If any additional problems come up don't hesitate to return to visit us. Please follow up with your primary care provider so they can plan additional care if needed and know about the problem that you had. If symptoms worsen come back to the Emergency Department. Any concerning symptoms that start such as chest pain, shortness of air, weakness or numbness on one side of the body, running high fevers or any other concerning symptoms return to the ER. ESTELITA BAIRES DO Apr 18, 2021 12:41
[2021-04-18] MEDS ORDERED: IV NORMAL SALINE 1000ML BAG 1,000 ML IV ONE (12:45)
[2021-04-18 12:52] LABS: BACTERIA,URINE FEW /HPF (0-FEW); RBC,URINE OCC /HPF (0-2); WBC,URINE OCC /HPF (0-4)
[2021-04-18 14:04] LABS: CALCIUM 9.3 mg/dL (8.5-10.1); CREATININE 0.7 mg/dL (0.6-1.0); GFR 123.4; POTASSIUM 4.7 mmol/L (3.5-5.1)
[2021-04-18 14:11] LABS: ALBUMIN 3.7 g/dL (3.4-5.0); ALBUMIN/GLOBULIN RATIO 0.9 (1.0-1.7); MAGNESIUM 2.1 mg/dL (1.8-2.4); TOTAL BILIRUBIN 0.4 mg/dL (0.2-1.0); TOTAL PROTEIN 7.8 g/dL (6.4-8.2)
[2021-04-18 15:17] LABS: BASO % 0 % (0-3); EOS # 0.1 x10^3/uL (0.0-0.7); EOS % 1 % (0-3); HEMATOCRIT 40.1 % (36.0-47.0); HEMOGLOBIN 13.5 g/dL (12.0-15.5); LYMPH # 1.9 x10^3/uL (1.0-4.8); LYMPH % 27 % (24-48); MEAN CORPUSCULAR HEMOGLOBIN 29 pg (25-35); MEAN CORPUSCULAR HGB CONC 34 g/dL (31-37); MEAN CORPUSCULAR VOLUME 86 fL (79-100); MONO # 0.5 x10^3/uL (0.0-1.1); MONO % 7 % (0-9); NEUT # 4.6 x10^3/uL (1.8-7.7); NEUT % 65 % (31-73); PLATELET COUNT 276 x10^3/uL (140-400); RED BLOOD COUNT 4.68 x10^6/uL (3.50-5.40); RED CELL DISTRIBUTION WIDTH 14.8 % (11.5-14.5); WHITE BLOOD COUNT 7.1 x10^3/uL (4.0-11.0)
--- NOTE | 2021-04-18 15:41 | RAD ---
INDICATION: Reason: pelvic pain, HCG 536 / Spl. Instructions: / History: COMPARISON: May 2017 TECHNIQUE: Grayscale and color ultrasound images uterus and adnexa. Transabdominal and transvaginal images obtained. Transvaginal images were needed to better visualize structures that were limited on transabdominal imaging. FINDINGS: Uterus: 96 x 52 x 47 mm. No intrauterine gestational sac is seen at this time. Right Ovary: 34 x 25 x 23 mm. Left Ovary: 30 x 25 x 16 mm. Vascular flow identified to bilateral ovaries. Small free fluid. IMPRESSION: * No intrauterine gestational sac is seen. * Vascular flow seen to the ovaries with small free fluid. Electronically signed by: Immanuel Nolan MD (04/18/2021 3:38 PM) [id number]
[2021-04-18 16:35] VITALS: BP 119/80
== END 2021-04-18 17:08 | disposition home or self-care (01) ==
LOC: ER 12:05
DX: O26.891 Other specified pregnancy related conditions, first trimester (principal); R10.30 Lower abdominal pain, unspecified; G43.909 Migraine, unspecified, not intractable, without status migrainosus
CPT/HCPCS: 36415; 76801; 76817; 80053; 81001; 81025; 83735; 84702; 85025; 87086; 96360; 99285; J7030